=== PATIENT | female | born 1965 | race Caucasian/White ===

== ENCOUNTER 2019-10-26 12:30 | Outpatient (RCR) | payer OTHER, MEDICARE, SELFPAY ==
--- NOTE | 2019-09-12 15:01 | PTOPEVAL ---
PHYSICAL THERAPY EVALUATION AND PLAN OF CARE Thank you for referring Yara Castillo to [facility]. I recommend Yara work with PT at least 2x/week for 4 weeks with re-assess to determine further needs. Please review, sign, date and return this plan of care PAMELA. I agree with and certify that the following plan of care is medically necessary. Referring Physician Date Attending Provider: Chris Coats MD Assessment Status Evaluation Outpatient Past Medical History Cardiovascular History Hx Hypertension Yes Hx Myocardial Infarction Yes: stent 04/11/13 Musculoskeletal History Hx Amputation Yes: right transfemoral amputation Hx Other Musculoskeletal Disorders Yes: left LE neuropathy Endocrine History Hx Diabetes Yes Evaluation Information Problem Diagnosis gait training for right transfemoral amputation Onset 03/2019 Subjective Information Yara is here today for Query Text:As Reported By Patient/ gait training following right Family transfemoral amputation. reports no pain. She is excited to start trying to walk Prior Level of Function Activity Level (Last 3 Months) Hand Dominance Right Home Setting Home Type Single Level Environmental Barriers Ramp,Stairs, Threshold Living Situation With Minor Child,With Spouse Support Available Local Family Support Mobility Assistive Devices (Used Last 3 Wheelchair, Manual Months) Pain Assessment Timing of Pain Assessment Timing of Pain Assessment Assessment Self Report Self Report Pain Level 0 Pain Score Pain Score 0: Self Report Cervical and Lumbar Muscle Testing Lumbar Strength Upper Abdominal Strength 3+Fair+ Lower Abdominal Strength 3-Fair- Abdominal Obliques 3+Fair+ Lower Extremity Muscle Strength Testing Hip Strength Left Hip Flexion Strength 5 Normal Hip Extension Strength 4- Good - Hip Abduction Strength 4- Good - Right Hip Flexion Strength 4+ Good + Hip Extension Strength 4 Good Hip Abduction Strength 4 Good Hip Adduction Strength 4 Good Knee Strength Left Knee Flexion Strength 4+ Good + Knee Extension Strength 4+ Good + Ankle Strength Left Ankle Dorsiflexion Strength 3+ Fair + Ankle Plantarflexion Strength 3+ Fair + Ankle Eversion Strength 3+ Fair + Ankle Inversion Strength 3+ Fair + Upper Extremity Muscle Strength Testing Scapular/Shoulder Bilateral Shoulder Flexion Strength 4 Good Shoulder Abduction Strength 4 Good
--- NOTE | 2019-10-03 08:53 | PCPTNOTE ---
Patient called & cancelled scheduled appointment this date, no reason given.
--- NOTE | 2019-10-10 10:44 | PCPTNOTE ---
Patient called & cancelled scheduled appointment this date due to continuing to have fevers on and off.
--- NOTE | 2019-10-11 15:54 | PCPTNOTE ---
Patient called & cancelled scheduled appointment on 10/13/2019 this date due to being admitted to inpatient.
--- NOTE | 2019-10-26 13:16 | PTOPEVAL ---
PHYSICAL THERAPY DISCHARGE REPORT Thank you for referring Yara Castillo to [facility]. Per patient's request, we will discharge from PT at this time with an intention to start again when she is able to bear weight through left leg. Please review, sign, date and return this plan of care PAMELA. I agree with and certify that the following plan of care is medically necessary. Referring Physician Date Attending Provider: Chris Coats MD Discharge Diagnosis gait training for right transfemoral amputation Onset 03/2019 Subjective Information Tracy is here after Query Text:As Reported By Patient/ participating in 2 weeks of Family therapy and then taking a month off due to illness an hospitalization. She was hospitalized for a new and severe wound on left heel. She is currently non-weight bearing through left foot. She would like to be able to come to therapy when she can work on walking and using her prosthetic becaue she feels she is capable of doing her other home exercises on her own. Pain Assessment Timing of Pain Assessment Timing of Pain Assessment Assessment Self Report Self Report Pain Level 0 Pain Score Pain Score 0: Self Report Lower Extremity Muscle Strength Testing Hip Strength Left Hip Flexion Strength 5 Normal Hip Extension Strength 4+ Good + Hip Abduction Strength 4+ Good + Right Hip Flexion Strength 5 Normal Hip Extension Strength 4+ Good + Hip Abduction Strength 5 Normal Hip Adduction Strength 5 Normal Knee Strength Left Knee Flexion Strength 5 Normal Knee Extension Strength 5 Normal Ankle Strength Left Reason Not Measured Surgery Precautions Transfer Assessment Wheelchair Transfer Assessment Wheelchair Transfer Assistive Devices None Ambulation Assistive Devices None Wheelchair Type Manual Wheelchair Transfer Destination Mat Wheelchair Brakes Management Independent Wheelchair Armrests Management Independent Wheelchair Footrests Management Independent Sit to Stand Wheelchair Transfer Ability Independent Stand to Sit Wheelchair Transfer Ability Independent Ability to Safely Transfer To/From a Independent Wheelchair Wheelchair Transfer Technique Lateral Scoot Cues Needed for Wheelchair Transfer None Bed Mobility Assessment Bed Mobility Bed Mobility Assistive Dev
== END 2019-10-27 08:22 | disposition home or self-care (01) ==
LOC: ANHPT 12:30
PROVIDERS: Visit Provider Specialist
DX: Z47.81 Encounter for orthopedic aftercare following surgical amputation (principal); Z89.611 Acquired absence of right leg above knee
CPT/HCPCS: 97110; 97116; 97162; 97761

== ENCOUNTER 2020-04-11 10:46 | Outpatient (CLI) | payer OTHER, MEDICARE, SELFPAY ==
--- NOTE | ~2020-04-11 | XR_ITS ---
EXAMINATION: XR shoulder LT min 2V DATE: 04/11/2020 11:17 INDICATION: Left shoulder pain. TECHNIQUE: 4 views of left shoulder were obtained. COMPARISON: None. FINDINGS: Bone alignment is normal. No fracture. Subacromial spurring is noted. There is mild glenohu meral joint osteoarthritis and severe acromioclavicular joint osteoarthritis. IMPRESSION: 1. Polyarticular osteoarthritis. Reviewed, dictated and finalized at location B. ICATING MACHINE OPERATOR
== END 2020-04-11 10:47 | disposition home or self-care (01) ==
LOC: ANHIMG 10:52
PROVIDERS: PCP Family Medicine; Visit Provider Nurse Practitioner Family
DX: M19.012 Primary osteoarthritis, left shoulder (principal)
CPT/HCPCS: 73030

== ENCOUNTER 2020-07-11 09:07 | Outpatient (CLI) | payer BC, MEDICARE, SELFPAY ==
[2020-07-11 09:52] LABS: Basophils Absolute Auto 0.1 K/mm3 (0.0-0.1); Basophils Percent Auto 0.4 % (0.2-1.2); Eosinophils Absolute Auto 0.2 K/mm3 (0-0.3); Eosinophils Percent Auto 1.8 % (0-4.4); Hematocrit 39.5 % (37.0-47.0); Hemoglobin 12.5 g/dL (12.0-15.0); Immature Granulocyte Absolute 0.06 K/mm3 (0.00-0.031); Immature Granulocyte Percent A 0.5 % (0-0.5); Lymphocytes Absolute Auto 2.68 K/mm3 (0.9-3.2); Lymphocytes Percent Auto 21.1 % (18.3-44.2); Mean Corpuscular HGB Conc 31.6 g/dl (32-36); Mean Corpuscular Hemoglobin 27.8 pg (26-34); Mean Corpuscular Volume 87.8 fl (80-100); Mean Platelet Volume 10.4 fl (7.4-10.4); Monocytes Absolute Auto 0.6 K/mm3 (0.1-0.6); Monocytes Percent Auto 4.5 % (2.6-8.5); Neutrophils Absolute Auto 9.1 K/mm3 (1.3-6.7); Neutrophils Percent Auto 71.7 % (45.5-73.1); Platelet Count Result 276 k/mm3 (150-375); Red Cell Distribution Width 15.6 % (11.5-14.5); White Blood Count 12.7 K/mm3 (4.5-10.0)
== END 2020-07-11 09:08 | disposition home or self-care (01) ==
PROVIDERS: PCP Family Medicine; Visit Provider Nurse Practitioner Family
DX: R44.3 Hallucinations, unspecified (principal); E11.65 Type 2 diabetes mellitus with hyperglycemia; Z79.4 Long term (current) use of insulin
CPT/HCPCS: 36415; 80053; 85025

== ENCOUNTER 2020-07-22 13:40 | Observation (INO) | payer MEDICARE, BC, SELFPAY ==
[2020-07-22] VITALS (11 sets, daily range): BP systolic 88–165; BP diastolic 60–93; PULSE 118–135; RESP 13–26; TEMP 36.5–36.7; O2SAT 98–100; BMI 40.4
--- NOTE | ~2020-07-22 | CT_ITS ---
EXAMINATION: CT abdomen pelvis w con DATE: 07/22/2020 16:20 INDICATION: Epigastric abdominal pain. Nausea and vomiting. TECHNIQUE: Computed tomography (CT) of the abdomen and pelvis was performed with 100 mL Omnipaque 350 intravenous contrast. Automated exposure control and iterative reconstruction technique were employe d. The dose-length product was 1556.86 mGy-cm. COMPARISON: None. FINDINGS: The visualized portions of the lung bases demonstrate minimal atelectasis. No pleural effus ion. The heart size is normal. There are coronary artery calcifications. No pericardial effusion. The liver is normal. The gallbladder is distended. The spleen is normal. There are calcifications in the pancreas, consistent with chronic pancreatitis. The adrenal glands and kidneys are normal. There are no dilated loops of bowel. The appendix is normal. There are no pathologically enlarged lymph nodes. There is no free intraperitoneal fluid. There is mild thoracolumbar spondylosis. IMPRESSION: 1. Distended gallbladder, which may be secondary to fasting or acute cholecystitis. Correlate with ph ysical exam. Reviewed, dictated and finalized at location A. CULTURAL EQUIPMENT TEST ENGINEER IMPRESSION: 1. Distended gallbladder, which may be secondary to fasting or acute cholecysti tis. Correlate with physical exam.
--- NOTE | ~2020-07-22 | US_ITS ---
EXAMINATION: US right upper quadrant DATE: 07/22/2020 17:29 INDICATION: Right upper quadrant abdominal pain. TECHNIQUE: Multiple grayscale and Doppler ultrasound images of the abdomen were obtained. COMPARISON: CT abdomen and pelvis 07/22/2020 FINDINGS: The visualized portions of the head and body of the pancreas are normal. There is diffuse h epatic steatosis. There is normal flow in main portal vein. The gallbladder is distended. No gallston es or gallbladder wall thickening. There was no sonographic Song sign. The common duct is normal an d measures 4 mm. IMPRESSION: 1. Distended gallbladder, likely secondary to fasting. 2. Diffuse hepatic steatosis. Reviewed, dictated and finalized at location A. CTOR MUSEUM OR ZOO
--- NOTE | 2020-07-22 13:56 | ECG_ITS ---
Measurements Intervals [place] Rate: 133 P: 13 AL: 136 QRS: 19 QRSD: 91 T: 56 QT: 316 QTc: 471 Interpretive Statements SINUS TACHYCARDIA BORDERLINE R WAVE PROGRESSION, ANTERIOR LEADS BORDERLINE ST ABNORMALITY- INF/LAT LEADS BASELINE ARTIFACT- I, II, III, AVR, AVL, AVF ABNORMAL ECG Electronically Signed On 07-22-2020 14:53:40 PACKING LINE WORKER by Arcadio Dunaway D.O.
[2020-07-22] MEDS: SODIUM CHLORIDE 0.9% IV 1,000 ML 999 ML IV CONT ×2 (14:15→15:38)
--- NOTE | 2020-07-22 14:18 | ED.NAVMDI ---
HPI - Nausea/Vomiting/Diarrhea General Chief complaint: Nausea/Vomiting/Diarrhea Stated complaint: upper gi Time Seen by Provider: 07/22/20 13:48 History of Present Illness HPI Narrative: Patient is a 55-year-old female with history of diabetes who presents to the ER with nausea and vomiting. Reports she woke up this morning and has had persistent vomiting since awakening. Had similar symptoms about a week ago when she was seen in a separate emergency room and was diagnosed with gastroenteritis. She denies history of gastroparesis. Reports her blood sugars have been running in the 200s. Denies fever/chills/sweats. She reports abdominal discomfort in upper abdomen that is more related to feeling like she needs to vomit as opposed to sharp stabbing pain. She has no chest discomfort difficulty breathing. No known sick contacts. She has no diarrhea however when she vomits she does defecate. Related Data Home Medications Medication Instructions Recorded Confirmed aripiprazole 5 mg tablet 5 mg PO DAILY 06/27/19 07/11/20 aspirin 81 mg tablet,delayed 81 mg PO DAILY 06/27/19 07/11/20 release bupropion HCl 75 mg tablet 75 mg PO BID tablet 06/27/19 07/11/20 docusate sodium 100 mg capsule 100 mg PO BID 06/27/19 07/11/20 metoprolol succinate 50 mg 50 mg PO BID 06/27/19 07/11/20 tablet,extended release 24 hr ropinirole 0.25 mg tablet 0.25 mg PO DAILY tablet 06/27/19 07/11/20 venlafaxine 75 mg capsule,extended 225 mg PO QPM cap 06/27/19 07/11/20 release 24 hr atorvastatin 40 mg tablet 40 mg PO QPM tablet 10/04/19 07/11/20 blood-glucose meter,continuous #1 each 10/04/19 07/11/20 furosemide 20 mg tablet 20 mg PO QAM 01/18/20 07/11/20 lisinopril 2.5 mg tablet 2.5 mg PO DAILY 04/18/20 07/11/20 ondansetron HCl 8 mg tablet 8 mg PO Q8H tablet 07/11/20 07/11/20 Allergies Allergy/AdvReac Type Severity Reaction Status Date / Time No Known Allergies Allergy Verified 07/22/20 13:58 Review of Systems Review of Systems: All systems reviewed & are unremarkable except as noted in HPI and below Constitutional: Constitutional: Denies chills, Denies fever(s) and Reports weakness ENT: Denies nasal congestion and Denies sore throat Cardiovascular: Cardiovascular: Denies chest pain, Denies rapid heart rate and Denies radiating jaw, neck or arm pain Respiratory: Respiratory: Denies cough, Denies dyspnea and Denies wheezing Gastrointestinal: Gastrointestinal: Reports abdominal pain, Denies diarrhea, Reports nausea and Reports vomiting PMFSH Past Medical History Medical History Essential hypertension Foot ulcer History of right above knee amputation Neuropathy Other and unspecified hyperlipidemia Peripheral artery disease Phantom limb (syndrome) Proliferative diabetic retinopathy Recurrent urinary tract infection Tobacco abuse Type 2 diabetes mellitus with hyperglycemia, with long-term current use of insulin Surgical History Surgical History History of cardiac cath stent - 2012 History of section History of right below knee amputation Family History Family History Father Family history of malignant neoplasm of esophagus Mother Breast cancer Non-Hodgkin lymphoma Sibling No problems noted. Other Family history of lymphoma Family history of malignant neoplasm of breast Hypertension Malignant neoplasm of prostate Social History Social History Smoking packs per day: 1 Smoking cigarettes per day: 20.0 Smoking status: Former smoker Tobacco type: cigarettes Alcohol intake: never Substance use: current Substance use type: marijuana Gender identity (if verbalized by the patient): Female Exam Narrative: Exam Narrative: GENERAL: Chronically ill-appearing, mor
[2020-07-22 14:19] LABS: Alveolar/Arterial O2 Gradient 27.7 mmHg; Carboxyhemoglobin 0.7 % THb (0-2.0); Fractional Inspired Oxygen 21 %; HCO3 ABG 18.4 mEq/l (22.0-26.0); Methemoglobin ABG 0.2 %THb (0-1.5); Oxygen Content ABG 20.1 %vol (16.0-22.0); Oxygen Saturation ABG 98.3 % (95.0-100.0); PO2 ABG 97.7 mmHg (80.0-100.0); PO2 FiO2 Ratio Arterial Blood 4.65 %; Reduced Hemoglobin 2.1 %THb (0-5.0); Total Hemoglobin 14.7 g/dL (12.0-18.0)
[2020-07-22 14:20] LABS: Device ROOM AIR; Modified Allen's Test Pass; PCO2 ABG 20.3 mmHg (35.0-45.0); Site Drawn RIGHT RADIAL; pH ABG 7.576 (7.350-7.450)
[2020-07-22] MEDS: PROMETHAZINE HCL 25 MG/ML AMPUL 12.5 MG IV PUSH (14:28)
[2020-07-22 15:17] LABS: Glucose Point of Care 74 (65-105)
[2020-07-22 15:25] LABS: Basophils Absolute Auto 0.1 K/mm3 (0.0-0.1); Basophils Percent Auto 0.7 % (0.2-1.2); Eosinophils Absolute Auto 0.1 K/mm3 (0-0.3); Eosinophils Percent Auto 0.5 % (0-4.4); Hemoglobin 14.8 g/dL (12.0-15.0); Immature Granulocyte Percent A 1.1 % (0-0.5); Lymphocytes Absolute Auto 3.73 K/mm3 (0.9-3.2); Lymphocytes Percent Auto 21.1 % (18.3-44.2); Mean Corpuscular HGB Conc 32.2 g/dl (32-36); Mean Corpuscular Hemoglobin 27.5 pg (26-34); Mean Corpuscular Volume 85.5 fl (80-100); Mean Platelet Volume 10.3 fl (7.4-10.4); Monocytes Absolute Auto 0.7 K/mm3 (0.1-0.6); Monocytes Percent Auto 3.9 % (2.6-8.5); Neutrophils Absolute Auto 12.8 K/mm3 (1.3-6.7); Neutrophils Percent Auto 72.7 % (45.5-73.1); Platelet Count Result 519 k/mm3 (150-375); Red Blood Count 5.38 M/mm3 (4.2-5.4); Red Cell Distribution Width 15.2 % (11.5-14.5); White Blood Count 17.7 K/mm3 (4.5-10.0)
[2020-07-22 15:29] LABS: Add Urine Microscopic? YES; Appearance Urine Clear (Clear); Bilirubin Urine Negative (Negative); Blood Urine Negative (Negative); Color Urine Yellow (Yellow); Glucose Urine UA 3+ mg/dL (Negative); Ketones Urine Negative (Negative); Leukocyte Esterase Ur Negative LEU/UL (Negative); Mucus Urine Rare /lpf; Nitrate Urine Negative (Negative); Protein Urine 2+ mg/dL (Negative); RBC Urine 0-2 /hpf (0-2); Specific Grav Ur 1.027 (1.001-1.035); Squamous Epithelial Cell Urine Few /hpf (Few); Urobilinogen Urine Negative mg/dL (<2.0)
[2020-07-22 15:37] LABS: Alanine Aminotransferase 24 U/L (4-35); Albumin Level 4.5 g/dL (3.5-5.1); Alkaline Phosphatase 156 U/L (38-126); Anion Gap 16 mmol/L (8-16); Aspartate Amino Transferase 22 U/L (14-36); Bilirubin,Total 0.5 mg/dL (0.2-1.3); Blood Urea Nitrogen 13 mg/dL (7-17); Calcium 10.5 mg/dL (8.4-10.2); Carbon Dioxide 27 mmol/L (22-30); Chloride 101 mmol/L (98-107); Estimated CRCL calculation 61 ml/min; Estimated Glomerular Filt Rate 43; Glucose 72 mg/dL (65-105); Magnesium 1.3 mg/dL (1.6-2.3); Sodium 144 mmol/L (137-145)
[2020-07-22 15:42] LABS: Beta-Hydroxybutyrate/Acetoacetate 0.41 mmol/L (0.02-0.27)
[2020-07-22 15:46] LABS: Lactic Acid Reflex 6.2 mmol/L (0.7-2.1)
[2020-07-22 16:51] LABS: Phosphorus < 1.0 mg/dL (2.5-4.5)
[2020-07-22 18:21] LABS: Reflex Lactic Acid Yes or No Add Lactic
[2020-07-22 19:35] LABS: Hematocrit 42.8 % (37.0-47.0); Hemoglobin 13.9 g/dL (12.0-15.0)
[2020-07-22 19:58] LABS: Lactic Acid Reflex 3.4 mmol/L (0.7-2.1)
[2020-07-22] MEDS: PANTOPRAZOLE SODIUM IV 40 MG VIAL IV PUSH (21:42)
[2020-07-22] MEDS: MAGNESIUM SULF 4 GM/WATER100ML 4 GM/100 ML BAG IVPB (22:33)
[2020-07-22] MEDS: SODIUM CHLORIDE 0.9% IV 1,000 ML 125 ML IV CONT (22:38)
[2020-07-22] MEDS: POTASSIUM PHOS/SODIUM PHOS 250 MG TABLET PO (22:39)
--- NOTE | 2020-07-22 23:16 | PC.NURSE ---
This patient, Yara Castillo, was admitted to 2 Medical Room 261-01. Patient/family oriented to hospital policies and general routines including ID bracelet, bed and alarms, visiting hours, pain management, procedures, bathroom and other care routines, personal items, smoking policy, room service/diet, and visiting hours. Information on how to activate the Rapid Response Team has been discussed. Patient/Family are encouraged to report perceived risks to care and to ask questions if they do not understand what they are told or what they should do.
[2020-07-23] VITALS (12 sets, daily range): BP systolic 110–148; BP diastolic 66–88; PULSE 100–130; RESP 16–18; TEMP 35.9–36.6; O2SAT 93–100; BMI 40.4
[2020-07-23 01:08] LABS: Glucose Point of Care 192 (65-105)
[2020-07-23] MEDS: INSULIN GLARGINE (*BKC) 100 UNITS/ML 25 UNITS SUB-Q (01:59)
[2020-07-23] MEDS: METOPROLOL TARTRATE 50 MG TAB PO ×3 (02:00→21:05)
[2020-07-23] MEDS: ATORVASTATIN 40 MG TABLET PO ×2 (02:01→17:27)
--- NOTE | 2020-07-23 05:18 | PM.IMHP ---
H&P: HPI History of Present Illness Date/Time: 07/23/20 04:18 Chief Complaint: Nausea, vomiting and diarrhea Narrative: Yara Castillo is a 55 year old female with a past medical history of diabetic retinopathy, diabetic neuropathy, right pzdhu-xuz-ebmi amputation with non adherence to CPAP therapy, and coronary artery disease who presented to the ER from [facility] with nausea vomiting and diarrhea. The patient reports that 5 days ago she had about 24 hours of severe nausea and vomiting. She was evaluated at the ER at an outside hospital. Zofran and fluids with improvement in her symptoms. She was diagnosed with gastroenteritis and discharged home with Zofran. Following her episode of nausea vomiting she had constant heartburn. She reports that she had almost constant heartburn. She reports that if she could get a couple of sips of fluid down the pain would ease up in she was able to drink fluids. She was not interested in eating anything solid. She reported the eating anything solid caused her pain upon swallowing and upper abdominal pain. Then she reported that yesterday she was on her way to see Dr. Wilde when she began having severe nausea vomiting and diarrhea. She was at the doctor's office when she was on the commode and was so weak that she could not get back up. She has not had any further diarrhea since she presented to the ER. In the ER she received 2 L of fluid and additional 3rd L was given when she arrived to the medical floor. She also received Phenergan, potassium supplementation and Zosyn. The patient reports that she was having some abdominal pain but the pain felt more like discomfort from vomiting. The pain was not sharper stabbing. She denies any hematemesis. Triage note reports the patient had coffee-ground emesis on arrival to the ER. She reports that her mouth feels dry currently in that she wants something to drink. She denies having a history of diabetic gastroparesis. She has never had an EGD. Her father did have a history of esophageal cancer. The patient is worried that she may have esophageal cancer given the burning nature of her pain. She does have a history of intermittent heartburn. She did not try any cnwu-csz-tpuixnt medications for symptoms. She did not try the Zofran that had been previously prescribed. She denied any fevers, chills or recent ill contacts. Her stool was brown without hematochezia or melena. She is not having any lower abdominal pain. She still reports some right upper quadrant abdominal pain to palpation. She had a right upper quadrant ultrasound performed in the ER which demonstrated dilated gallbladder most consistent with fasting. The patient reports that her average glucoses are in the 200s. Her most recent hemoglobin A1c in fall 2019 was 10. She reports that she has not taken her Trulicity or Toujeo for the last 3 days. She has been taking her short-acting insulin. She took 50 units of short-acting insulin before going to Dr. Meño Wilde is office for her appointment. She reports that on Wednesday she was actually headed to see her woodworking machinist when her symptoms started. She was seeing her woodworking machinist due to new onset of uterine bleeding. Her woodworking machinist sent her to the ER. She plans to follow-up with her woodworking machinist regarding her vaginal bleeding. She denies any dysuria or hematuria. Review of Systems Review of Systems: Narrative: 12 systems were reviewed with pertinent positives and negatives per HPI. Except as documented in the HPI, all other systems were reviewed and are negative. [facility] Past Medical History Medical History (Updated 07/23/20 @ 06:06 by Yris Rubin, ) Depression Essential hypertension Foot ulcer Left foot ulcer September 2019 now healed History of TIAs December 2019 Hyperlipidemia Left carotid artery stenosis Morbid obesity Neuropathy Non-STEMI (non-ST elevated myocardial infarction) March 2013 Obstructive sleep ap
[2020-07-23 05:41] LABS: Hematocrit 37.1 % (37.0-47.0); Hemoglobin 11.7 g/dL (12.0-15.0); Mean Corpuscular HGB Conc 31.5 g/dl (32-36); Mean Corpuscular Hemoglobin 27.3 pg (26-34); Mean Corpuscular Volume 86.5 fl (80-100); Mean Platelet Volume 10.3 fl (7.4-10.4); Platelet Count Result 374 k/mm3 (150-375); Red Blood Count 4.29 M/mm3 (4.2-5.4); Red Cell Distribution Width 15.4 % (11.5-14.5); White Blood Count 16.3 K/mm3 (4.5-10.0)
[2020-07-23 05:56] LABS: Anion Gap 8 mmol/L (8-16); Blood Urea Nitrogen 15 mg/dL (7-17); Calcium 8.5 mg/dL (8.4-10.2); Carbon Dioxide 30 mmol/L (22-30); Chloride 101 mmol/L (98-107); Estimated CRCL calculation 72 ml/min; Estimated Glomerular Filt Rate 52; Glucose 174 mg/dL (65-105); Magnesium 2.3 mg/dL (1.6-2.3); Phosphorus 2.8 mg/dL (2.5-4.5); Potassium 3.7 mmol/L (3.4-5.0); Sodium 139 mmol/L (137-145)
[2020-07-23] MEDS: SODIUM CHLORIDE 0.9% IV 1,000 ML 125 ML IV CONT (07:38)
[2020-07-23 08:19] LABS: Glucose Point of Care 173 (65-105)
[2020-07-23 08:37] LABS: Reflex Lactic Acid Yes or No Add Lactic
[2020-07-23 09:00] LABS: Lactic Acid 2.4 mmol/L (0.7-2.1)
[2020-07-23] MEDS: ASPIRIN 81 MG ENTERIC TABLET PO (09:19)
[2020-07-23] MEDS: CLOPIDOGREL BISULFATE 75 MG TABLET PO (09:19)
[2020-07-23] MEDS: buPROPion HCL 75 MG TABLET PO ×2 (09:19→17:27)
[2020-07-23] MEDS: ARIPiprazole 10 MG TABLET PO (09:19)
[2020-07-23] MEDS: lisinopriL 2.5 MG TABLET PO (09:19)
[2020-07-23] MEDS: rOPINIRole HCL 0.25 MG TABLET PO (09:19)
[2020-07-23] MEDS: PANTOPRAZOLE SODIUM IV 40 MG VIAL IV PUSH ×2 (09:20→17:27)
--- NOTE | 2020-07-23 11:53 | P.PNIM_ITS ---
Progress Note: A&P Assessment and Plan (1) Nausea & vomiting: Qualifiers: Vomiting Intractability: non-intractable Vomiting type: unspecified Qualified Code(s): R11.2 - Nausea with vomiting, unspecified Code(s): R11.2 - Nausea with vomiting, unspecified Status: Acute Assessment and Plan: Possibly secondary to gastritis or esophagitis given her reports of somewhat frequent heartburn and odynophagia/dysphagia. Additional consideration includes diabetic gastroparesis but she denies any recurrent nausea and vomiting symptoms prior to the last week. * GI consulted and input is greatly appreciated. * Continue NPO status until evaluation by GI * Continue empiric zosyn given marked leukocytosis and finding of distended gallbladder on RUQ US and CT abd/pelvis, mild RUQ pain and will ask general surgery for additional input. This may be secondary to fasting given N/V. WBC is elevated but may also be reactive and secondary to vomiting. * Follow CBC. Blood cultures were obtained. * Continue supportive care with IV fluids and zofran PRN nausea/vomiting * Will obtain stool cultures given diarrhea (2) SIRS (systemic inflammatory response syndrome): Code(s): R65.10 - Systemic inflammatory response syndrome (SIRS) of non-infectious origin without acute organ dysfunction Status: Acute Assessment and Plan: SIRS criteria met on admission with leukocytosis and tachycardia. There is no definitive source of infection at this time however she has nausea, vomiting, and diarrhea with finding of gallbladder distention so she is on empiric zosyn. Lactic acid elevated on admission and improving. Blood pressure is stable. * Continue empiric zosyn for now * Blood cultures obtained and pending. Await results. * Follow hemodynamics and strict intake and output (3) Odynophagia: Code(s): R13.10 - Dysphagia, unspecified Status: Acute Assessment and Plan: She reports onset after vomiting. GI is following. * Await GI recommendations, she will likely benefit from EGD * Continue pantoprazole (4) Type 2 diabetes mellitus with hyperglycemia, with long-term current use of insulin: Code(s): E11.65 - Type 2 diabetes mellitus with hyperglycemia; Z79.4 - ad terminal makeup operator (current) use of insulin Status: Acute Assessment and Plan: Hemoglobin A1c 10.3 on 03/2020. Chronically poorly controlled. She has significant insulin resistance. She received a partial dose of lantus last night at 25 units since she is NPO. * Continue sliding scale insulin, Q6HR glucose monitoring, and hypoglycemia protocol * Resume mealtime insulin when no longer NPO * Continue lantus at a reduced dose, adjust as indicated * Will consult [place]ffer[place] construction supervisor and repeat hemoglobin A1c (5) Hypokalemia: Code(s): E87.6 - Hypokalemia Status: Resolved Assessment and Plan: Resolved. Likely secondary to poor oral intake and GI losses. She received potassium chloride and repeat potassium is 3.7. * Continue to monitor on daily labs and supplement as necessary (6) Hypomagnesemia: Code(s): E83.42 - Hypomagnesemia Status: Resolved Assessment and Plan: Resolved. Likely secondary to poor oral intake and GI losses. She received magnesium sulfate and repeat magnesium is 2.3 today. * Continue to monitor on daily labs and supplement as necessary (7) Hypophosphatemia: Code(s): E83.39 - Other disorders of phosphorus metabolism Status: Resolved Assessmen
--- NOTE | 2020-07-23 11:53 | PM.IMPN ---
Progress Note: A&P Assessment and Plan (1) Nausea & vomiting: Qualifiers: Vomiting Intractability: non-intractable Vomiting type: unspecified Qualified Code(s): R11.2 - Nausea with vomiting, unspecified Code(s): R11.2 - Nausea with vomiting, unspecified Status: Acute Assessment and Plan: Possibly secondary to gastritis or esophagitis given her reports of somewhat frequent heartburn and odynophagia/dysphagia. Additional consideration includes diabetic gastroparesis but she denies any recurrent nausea and vomiting symptoms prior to the last week. GI consulted and input is greatly appreciated. Continue NPO status until evaluation by GI Continue empiric zosyn given marked leukocytosis and finding of distended gallbladder on RUQ US and CT abd/pelvis, mild RUQ pain and will ask general surgery for additional input. This may be secondary to fasting given N/V. WBC is elevated but may also be reactive and secondary to vomiting. Follow CBC. Blood cultures were obtained. Continue supportive care with IV fluids and zofran PRN nausea/vomiting Will obtain stool cultures given diarrhea (2) SIRS (systemic inflammatory response syndrome): Code(s): R65.10 - Systemic inflammatory response syndrome (SIRS) of non-infectious origin without acute organ dysfunction Status: Acute Assessment and Plan: SIRS criteria met on admission with leukocytosis and tachycardia. There is no definitive source of infection at this time however she has nausea, vomiting, and diarrhea with finding of gallbladder distention so she is on empiric zosyn. Lactic acid elevated on admission and improving. Blood pressure is stable. Continue empiric zosyn for now Blood cultures obtained and pending. Await results. Follow hemodynamics and strict intake and output (3) Odynophagia: Code(s): R13.10 - Dysphagia, unspecified Status: Acute Assessment and Plan: She reports onset after vomiting. GI is following. 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 Chronically poorly controlled. She has significant insulin resistance. She received a partial dose of lantus last night at 25 units since she is NPO. Continue sliding scale insulin, Q6HR glucose monitoring, and hypoglycemia protocol Resume mealtime insulin when no longer NPO Continue lantus at a reduced dose, adjust as indicated Will consult life skills educator and repeat hemoglobin A1c (5) Hypokalemia: Code(s): E87.6 - Hypokalemia Status: Resolved Assessment and Plan: Resolved. Likely secondary to poor oral intake and GI losses. She received potassium chloride and repeat potassium is 3.7. Continue to monitor on daily labs and supplement as necessary (6) Hypomagnesemia: Code(s): E83.42 - Hypomagnesemia Status: Resolved Assessment and Plan: Resolved. Likely secondary to poor oral intake and GI losses. She received magnesium sulfate and repeat magnesium is 2.3 today. Continue to monitor on daily labs and supplement as necessary (7) Hypophosphatemia: Code(s): E83.39 - Other disorders of phosphorus metabolism Status: Resolved Assessment and Plan: Resolved. Likely secondary to poor oral intake and GI losses. Phosphorous was <1.0 on arrival. She received supplementation and phosphorous has normalized to 2.8 on repeat labs. Continue to monitor on daily labs and supplement as necessary (8) Lactic acidosis: Code(s): E87.2 - Acidosis Status: Acute Assessment and Plan: Lactic acid was 6.2 on arrival. Likely secondary to d
[2020-07-23 12:11] LABS: Glucose Point of Care 279 (65-105)
[2020-07-23 12:14] LABS: Lactic Acid Reflex 3.6 mmol/L (0.7-2.1)
[2020-07-23] MEDS: INSULIN ASPART (*BKC) 100 UNITS/ML SUB-Q ×2 (12:17→18:34)
--- NOTE | 2020-07-23 12:21 | PCNSR ---
On 07/23/20, the student, Rochelle Celaya, provided care and completed [facility] documentation on this patient. I have reviewed the student's documentation and agree with the findings.
[2020-07-23] MEDS: SODIUM CHLORIDE 0.9% IV 1,000 ML 999 ML IV CONT (13:50)
--- NOTE | 2020-07-23 14:42 | PM.CNGS ---
Assessment and Plan Assessment and plan (1) Abnormal finding on imaging: Code(s): R93.89 - Abnormal findings on diagnostic imaging of other specified body structures Status: Acute Assessment and Plan: Gallbladder distention noted on CT and RUQ ultrasound. No cholelithiasis, gallbladder wall thickening, positive Song sign, or inflammatory changes to suggest acute cholecystitis. I discussed these findings with the patient. After gathering a history and examining the patient, she does not seem to clinically correlate with gallbladder disease. Her presentation is also atypical for gallbladder disease. Her main complaint is the nausea/vomiting and pain with swallowing. GI has been consulted and is planning an EGD tomorrow. We would recommend proceeding with the EGD to further evaluate for other gastrointestinal causes for her symptoms. Okay from our standpoint to allow the patient to have clear liquids tonight if she is able to tolerate this and it is okay with GI. We will continue to follow along with you in consultation. (2) Nausea & vomiting: Qualifiers: Vomiting Intractability: non-intractable Vomiting type: unspecified Qualified Code(s): R11.2 - Nausea with vomiting, unspecified Code(s): R11.2 - Nausea with vomiting, unspecified Status: Acute Assessment and Plan: See plan above. GI consulted and planning EGD tomorrow. Continue IV fluids and antiemetics. Could also consider gastroparesis as a cause, although her symptoms seem to be more of an acute problem. (3) Leukocytosis: Code(s): D72.829 - Elevated white blood cell count, unspecified Status: Acute Assessment and Plan: No clear etiology for the leukocytosis and lactic acidosis. Could be related to dehydration, nausea, vomiting, but cannot rule out infectious process. Currently on broad-spectrum IV antibiotics and has received adequate IV fluid resuscitation. The leukocytosis and lactic acidosis does not appear to be related to her gallbladder. There is no findings on her imaging that would suggest any other obvious intra-abdominal source. UA negative for UTI. Continue to trend labs and treat empirically per primary team. (4) Lactic acidosis: Code(s): E87.2 - Acidosis Status: Acute Assessment and Plan: See above. Continue to monitor serial lactic acid levels, trending down. (5) Odynophagia: Code(s): R13.10 - Dysphagia, unspecified Status: Acute Assessment and Plan: EGD tomorrow. GI consulted. (6) Type 2 diabetes mellitus with hyperglycemia, with long-term current use of insulin: Code(s): E11.65 - Type 2 diabetes mellitus with hyperglycemia; Z79.4 - [facility] (current) use of insulin Status: Acute (7) Coronary artery disease: Code(s): I25.10 - Atherosclerotic heart disease of [place] coronary artery without angina pectoris Status: Chronic Assessment and Plan: Cardiac stent placed in 2012. (8) Left carotid artery stenosis: Code(s): I65.22 - Occlusion and stenosis of left carotid artery Status: Acute Assessment and Plan: History TIA in the summer and found to have significant left carotid artery stenosis. Patient reports that she was too high risk for surgery due to the significant stenosis, and was started on Plavix at this time. Currently on dual anti-platelet therapy with ASA/Plavix. Last dose this morning. 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 Now on hold. (10) Morbid obesity: Code(s): E66.01 - Morbid (severe) obesity due to excess calories Status: Inactive (11) Peripheral artery disease: Code(s): I73.9 - Peripheral vascular disease, unspecified Status: Acute (12) Neuropathy: Code(s): G62.9 - Polyneuropathy, unsp
[2020-07-23] MEDS: BACITRACIN/POLYMYXIN B OINT 15 GM TUBE 1 APPLIC TOPICAL (15:18)
[2020-07-23] MEDS: SODIUM CHLORIDE 0.9% IV 1,000 ML 150 ML IV CONT ×2 (15:18→21:07)
--- NOTE | 2020-07-23 15:51 | WPDGICN ---
Assessment and Plan Assessment and plan (1) Nausea & vomiting: Qualifiers: Vomiting Intractability: non-intractable Vomiting type: unspecified Qualified Code(s): R11.2 - Nausea with vomiting, unspecified Code(s): R11.2 - Nausea with vomiting, unspecified Status: Acute Assessment and Plan: will proceed with egd, assess if esophagitis, ulcers, etc it does not seem to be GB (not much pain) but surgery on board, started empirically on antibiotics because she presented with tachycardia and elevated lactic acid (improved now) (2) Upper abdominal pain: Code(s): R10.10 - Upper abdominal pain, unspecified Status: Acute Assessment and Plan: assess with egd also wonder if could be gastroenteritis, may have component of gastroparesis (probably can check gastric emptying study as outpatient because history of DM) (3) SIRS (systemic inflammatory response syndrome): Code(s): R65.10 - Systemic inflammatory response syndrome (SIRS) of non-infectious origin without acute organ dysfunction Status: Acute Assessment and Plan: on admission, better (4) Type 2 diabetes mellitus with hyperglycemia, with long-term current use of insulin: Code(s): E11.65 - Type 2 diabetes mellitus with hyperglycemia; Z79.4 - alf (current) use of insulin Status: Acute Assessment and Plan: with complications (neuropathy, amputation, etc) medical management by primary team (5) Essential hypertension: Code(s): I10 - Essential (primary) hypertension Status: Acute (6) Peripheral artery disease: Code(s): I73.9 - Peripheral vascular disease, unspecified Status: Acute GI Consult Note Consult date/time: 07/23/20 15:51 Reason for consult: intractable N/v HPI: Yara Castillo is a 55 year old female history of insulin-dependent diabetes mellitus for several years including PAD with left leg amputation, coronary artery disease on plavix and aspirin, hypertension, obstructive sleep apnea. She says that about 1 week ago started with nausea and vomiting also had one episode of loose stool that day, went to see her doctor and referred to ER at [facility] treated with IV fluids with improvement of symptoms, told probably viral infection. Wednesday again with nausea and vomiting, denies fever or much of abdominal pain and decided to see PCP but sent to ER because still was symptomatic. CT scan of the abdomen and pelvis reviewed that was unremarkable other than findings of gallbladder distension, no cholelithiasis. Right upper quadrant ultrasound showed gallbladder distention, no cholelithiasis or gallbladder [place]. [place] [address], lactic acid 6.2, and creatinine 1.3. She was tachycardic, treated with fluids and was started empirically on IV Zosyn, lactic acid down to 2.4. She never had EGD and denies chronic nausea but she claims history of GERD but not taking ppi. She had cologuard about 3 years ago, never colonoscopy. Review of Systems Constitutional: Constitutional: Denies chills Eyes: Eyes: Reports no additional eye complaints ENT: Reports system reviewed and no additional complaints, except as documented Cardiovascular: Cardiovascular: Denies chest pain Respiratory: Respiratory: Denies dyspnea Gastrointestinal: Gastrointestinal: Reports nausea and Reports vomiting Genitourinary: Genitourinary: Denies hematuria Musculoskeletal: Musculoskeletal: Denies neck pain Integumentary/Breasts: Skin/Breast: Denies pruritus Neurologic: Denies headache(s) Psychiatric: Psychiatric: Denies behavioral changes [facility] Past Medical History Medical History (Updated 07/23/20 @ 16:02 by Gonzalez Rangel MD) Depression Essential hypertension Foot ulcer Left foot ulcer September 2019 now healed, s/p debridement History of TIAs December 2019 Hyperlipidemia Left carotid artery stenosis on antiplatelet therapy Morbid obesi
[2020-07-23 16:03] LABS: Lactic Acid Reflex 2.4 mmol/L (0.7-2.1)
[2020-07-23] MEDS: VENLAFAXINE HCL XR 75 MG CAP.ER.24H 225 MG PO (17:27)
[2020-07-23 17:30] LABS: Glucose Point of Care 192 (65-105)
[2020-07-23] MEDS: INSULIN GLARGINE (*BKC) 100 UNITS/ML 35 UNITS SUB-Q (21:05)
[2020-07-24] VITALS (17 sets, daily range): BP systolic 131–160; BP diastolic 81–92; PULSE 98–117; RESP 16–22; TEMP 36.2–36.7; O2SAT 98–100
[2020-07-24] MEDS: INSULIN ASPART (*BKC) 100 UNITS/ML SUB-Q ×3 (00:36→17:48)
[2020-07-24 00:59] LABS: Glucose Point of Care 276 (65-105)
[2020-07-24 00:59] LABS: Glucose Point of Care 327 (65-105)
[2020-07-24] MEDS: SODIUM CHLORIDE 0.9% IV 1,000 ML 125 ML IV CONT (06:16)
[2020-07-24 06:50] LABS: Glucose Point of Care 179 (65-105)
[2020-07-24 06:56] LABS: Basophils Absolute Auto 0.1 K/mm3 (0.0-0.1); Basophils Percent Auto 0.7 % (0.2-1.2); Eosinophils Absolute Auto 0.3 K/mm3 (0-0.3); Eosinophils Percent Auto 2.6 % (0-4.4); Hematocrit 36.7 % (37.0-47.0); Hemoglobin 11.4 g/dL (12.0-15.0); Immature Granulocyte Absolute 0.05 K/mm3 (0.00-0.031); Immature Granulocyte Percent A 0.5 % (0-0.5); Lymphocytes Absolute Auto 3.42 K/mm3 (0.9-3.2); Lymphocytes Percent Auto 31.8 % (18.3-44.2); Mean Corpuscular HGB Conc 31.1 g/dl (32-36); Mean Corpuscular Hemoglobin 27.7 pg (26-34); Mean Corpuscular Volume 89.3 fl (80-100); Mean Platelet Volume 10.6 fl (7.4-10.4); Monocytes Absolute Auto 0.6 K/mm3 (0.1-0.6); Monocytes Percent Auto 5.2 % (2.6-8.5); Neutrophils Absolute Auto 6.4 K/mm3 (1.3-6.7); Neutrophils Percent Auto 59.2 % (45.5-73.1); Platelet Count Result 331 k/mm3 (150-375); Red Blood Count 4.11 M/mm3 (4.2-5.4); Red Cell Distribution Width 15.4 % (11.5-14.5); White Blood Count 10.7 K/mm3 (4.5-10.0)
[2020-07-24 07:02] LABS: Alanine Aminotransferase 16 U/L (4-35); Albumin Level 3.6 g/dL (3.5-5.1); Alkaline Phosphatase 108 U/L (38-126); Anion Gap 7 mmol/L (8-16); Aspartate Amino Transferase 23 U/L (14-36); Bilirubin,Total 0.5 mg/dL (0.2-1.3); Blood Urea Nitrogen 9 mg/dL (7-17); Calcium 8.1 mg/dL (8.4-10.2); Carbon Dioxide 30 mmol/L (22-30); Chloride 102 mmol/L (98-107); Estimated CRCL calculation 109 ml/min; Estimated Glomerular Filt Rate > 60; Glucose 183 mg/dL (65-105); Magnesium 1.8 mg/dL (1.6-2.3); Phosphorus 2.9 mg/dL (2.5-4.5); Potassium 3.9 mmol/L (3.4-5.0); Sodium 139 mmol/L (137-145)
[2020-07-24 07:12] LABS: Lactic Acid Reflex 1.7 mmol/L (0.7-2.1)
--- NOTE | 2020-07-24 08:07 | P.PNIM_ITS ---
Progress Note: A&P Assessment and Plan (1) Nausea & vomiting: Qualifiers: Vomiting Intractability: non-intractable Vomiting type: unspecified Qualified Code(s): R11.2 - Nausea with vomiting, unspecified Code(s): R11.2 - Nausea with vomiting, unspecified Status: Acute Assessment and Plan: Possibly secondary to gastritis or esophagitis given her reports of somewhat frequent heartburn and odynophagia/dysphagia. Additional consideration includes diabetic gastroparesis but she denies any recurrent nausea and vomiting symptoms prior to the last week. * GI consulted and input is greatly appreciated * Plan for EGD today * She may consider gastric emptying study as outpatient per GI * Will discuss antibiotics with GI as symptoms are not felt secondary to gallbladder disease and may consider discontinuing antibiotics if fine from GI standpoint. Appreciate general surgery input. * Follow CBC. Blood cultures were obtained and demonstrate NGTD. * Continue supportive care with IV fluids and zofran PRN nausea/vomiting * Stool cultures were ordered but she is not having any further diarrhea (2) SIRS (systemic inflammatory response syndrome): Code(s): R65.10 - Systemic inflammatory response syndrome (SIRS) of non-infectious origin without acute organ dysfunction Status: Acute Assessment and Plan: SIRS criteria met on admission with leukocytosis and tachycardia. There is no definitive source of infection at this time. She is on empiric zosyn but cholecystitis is not suspected. Lactic acidosis has resolved. Blood pressure is stable. * Continue empiric zosyn for now but will discuss with GI and may discontinue as WBC has improved significantly with no clear source of infection * Blood cultures obtained and demonstrate NGTD * Follow hemodynamics and strict intake and output (3) Odynophagia: Code(s): R13.10 - Dysphagia, unspecified Status: Acute Assessment and Plan: She reports onset after vomiting. GI is following. * Plan for EGD today for further assessment * Continue pantoprazole (4) Type 2 diabetes mellitus with hyperglycemia, with long-term current use of insulin: Code(s): E11.65 - Type 2 diabetes mellitus with hyperglycemia; Z79.4 - [facility] (current) use of insulin Status: Acute Assessment and Plan: Hemoglobin A1c 10.3 on 03/2020. Chronically poorly controlled. She has significant insulin resistance. She has had a few readings above target and insulin is currently reduced since she was NPO yesterday. Most recent blood sugar was 179. * Continue sliding scale insulin, Q6HR glucose monitoring, and hypoglycemia protocol * Resume mealtime insulin when no longer NPO * Continue lantus at a reduced dose of 35 units and will uptitrate for tonight if diet is advanced * Will consult nurse educator and repeat hemoglobin A1c (5) Hypokalemia: Code(s): E87.6 - Hypokalemia Status: Resolved Assessment and Plan: Resolved. Likely secondary to poor oral intake and GI losses. She received potassium chloride and repeat potassium is 3.9. * Continue to monitor on daily labs and supplement as necessary (6) Hypomagnesemia: Code(s): E83.42 - Hypomagnesemia Status: Resolved Assessment and Plan: Resolved. Likely secondary to poor oral intake and GI losses. She received magnesium sulfate and repeat magnesium is 1.8 today. * Continue to monitor on daily labs and supplement as necessary (7) Hypophosphatemia:
--- NOTE | 2020-07-24 08:07 | PM.IMPN ---
Progress Note: A&P Assessment and Plan (1) Nausea & vomiting: Qualifiers: Vomiting Intractability: non-intractable Vomiting type: unspecified Qualified Code(s): R11.2 - Nausea with vomiting, unspecified Code(s): R11.2 - Nausea with vomiting, unspecified Status: Acute Assessment and Plan: Possibly secondary to gastritis or esophagitis given her reports of somewhat frequent heartburn and odynophagia/dysphagia. Additional consideration includes diabetic gastroparesis but she denies any recurrent nausea and vomiting symptoms prior to the last week. GI consulted and input is greatly appreciated Plan for EGD today She may consider gastric emptying study as outpatient per GI Will discuss antibiotics with GI as symptoms are not felt secondary to gallbladder disease and may consider discontinuing antibiotics if fine from GI standpoint. Appreciate general surgery input. Follow CBC. Blood cultures were obtained and demonstrate NGTD. Continue supportive care with IV fluids and zofran PRN nausea/vomiting Stool cultures were ordered but she is not having any further diarrhea (2) SIRS (systemic inflammatory response syndrome): Code(s): R65.10 - Systemic inflammatory response syndrome (SIRS) of non-infectious origin without acute organ dysfunction Status: Acute Assessment and Plan: SIRS criteria met on admission with leukocytosis and tachycardia. There is no definitive source of infection at this time. She is on empiric zosyn but cholecystitis is not suspected. Lactic acidosis has resolved. Blood pressure is stable. Continue empiric zosyn for now but will discuss with GI and may discontinue as WBC has improved significantly with no clear source of infection Blood cultures obtained and demonstrate NGTD Follow hemodynamics and strict intake and output (3) Odynophagia: Code(s): R13.10 - Dysphagia, unspecified Status: Acute Assessment and Plan: She reports onset after vomiting. GI is following. 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 Chronically poorly controlled. She has significant insulin resistance. She has had a few readings above target and insulin is currently reduced since she was NPO yesterday. Most recent blood sugar was 179. Continue sliding scale insulin, Q6HR glucose monitoring, and hypoglycemia protocol Resume mealtime insulin when no longer NPO Continue lantus at a reduced dose of 35 units and will uptitrate for tonight if diet is advanced Will consult breastfeeding educator and repeat hemoglobin A1c (5) Hypokalemia: Code(s): E87.6 - Hypokalemia Status: Resolved Assessment and Plan: Resolved. Likely secondary to poor oral intake and GI losses. She received potassium chloride and repeat potassium is 3.9. Continue to monitor on daily labs and supplement as necessary (6) Hypomagnesemia: Code(s): E83.42 - Hypomagnesemia Status: Resolved Assessment and Plan: Resolved. Likely secondary to poor oral intake and GI losses. She received magnesium sulfate and repeat magnesium is 1.8 today. Continue to monitor on daily labs and supplement as necessary (7) Hypophosphatemia: Code(s): E83.39 - Other disorders of phosphorus metabolism Status: Resolved Assessment and Plan: Resolved. Likely secondary to poor oral intake and GI losses. Phosphorous was <1.0 on arrival. She received supplementation and phosphorous has normalized to 2.9 on repeat labs. Continue to monitor on daily labs and supplement as necessary (8) Lactic acidosis: Code(s): E87.2 - [place]
--- NOTE | 2020-07-24 09:15 | PC.NURSE ---
pt to GI lab via wheelchair, brief report given to receiving RN
--- NOTE | 2020-07-24 09:32 | WPDANESEPPF ---
Anes - Initial Pre Proc Eval Procedure: Operation Date: 07/24/20 10:45 Proposed Procedures p Esophagogastroduodenoscopy - Gonzalez Rangel MD Date/Time: 07/24/20 09:32 Surgeon: Claudia Morales PA-C Pre Op Diagnosis: nausea and vomiting Patient Data Age: 55 Gender: F Height: 5 ft 8 in Weight: 120.5 kg Last Vital Signs Temp 97.7 F 07/24/20 06:00 Pulse 109 H 07/24/20 06:00 Resp 16 07/24/20 06:00 BP 141/85 H 07/24/20 06:00 Pulse Ox 99 07/24/20 06:00 Allergies Allergy/AdvReac Type Severity Reaction Status Date / Time No Known Allergies Allergy Verified 07/22/20 13:58 Home Medications Medication Instructions Recorded Confirmed Type aripiprazole 5 mg tablet 10 mg PO DAILY 06/27/19 07/22/20 History aspirin 81 mg tablet,delayed 81 mg PO DAILY 06/27/19 07/22/20 History release bupropion HCl 75 mg tablet 75 mg PO BID tablet 06/27/19 07/22/20 History docusate sodium 100 mg capsule 100 mg PO BID PRN 06/27/19 07/22/20 History ropinirole 0.25 mg tablet 0.25 mg PO DAILY tablet 06/27/19 07/22/20 History venlafaxine 75 mg capsule,extended 225 mg PO QPM cap 06/27/19 07/22/20 History release 24 hr atorvastatin 40 mg tablet 40 mg PO QPM tablet 10/04/19 07/22/20 History lisinopril 2.5 mg tablet 2.5 mg PO DAILY 04/18/20 07/22/20 History Trulicity 1.5 mg/0.5 mL 1.5 mg SUBCUT WEEKLY 90 Days #6 ml 04/24/20 07/22/20 Rx subcutaneous pen injector NS clopidogrel 75 mg tablet 75 mg PO DAILY #90 tablet 05/02/20 07/22/20 Rx Novolog U-100 Insulin aspart 100 50 unit SUBCUT TID 90 Days #140 ml 07/03/20 07/22/20 Rx unit/mL subcutaneous solution NS insulin glargine U-300 conc 300 110 unit SUBCUT QPM 90 Days 07/03/20 07/22/20 Rx unit/mL (3 mL) subcutaneous pen #33.003 ml metoprolol tartrate 50 mg PO Q12H 07/22/20 07/22/20 History Laboratory Tests 07/23/20 07/23/20 07/23/20 11:27 12:06 15:31 WBC RBC Hgb Hct MCV MCH MCHC RDW Plt Count MPV Immature Gran % (Auto) Neut % (Auto) Lymph % (Auto) [place] % (Auto) Eos % (Auto) Baso % (Auto) Lymph # (Auto) [place] # (Auto) Eos # (Auto) Baso # (Auto) Abs Immat Gran (auto) Absolute Neuts (auto) Absolute Nucleated RBC Nucleated RBC % Sodium Potassium Chloride Carbon Dioxide Anion Gap BUN Creatinine Estim Creat Clear Calc Estimated GFR Glucose POC Capillary Glucose 279 mg/dl H mg/dl (65-105) Lactic Acid 3.6 mmol/L H mmol/L 2.4 mmol/L H mmol/L (0.7-2.1) (0.7-2.1) Calcium Phosphorus Magnesium Total Bilirubin AST ALT Alkaline Phosphatase Total Protein Albumin 07/23/20 07/23/20 07/24/20 17:26 21:02 00:22 WBC RBC Hgb Hct MCV MCH MCHC RDW Plt Count MPV Immature Gran % (Auto) Neut % (Auto) Lymph % (Auto) [place] % (Auto) Eos % (Auto) Baso % (Auto) Lymph # (Auto) [place] # (Auto) Eos # (Auto) Baso # (Auto) Abs Immat Gran (auto) Absolute Neuts (auto) Absolute Nucleated RBC Nucleated RBC % Sodium Potassium Chloride Carbon Dioxide Anion Gap BUN Creatinine Estim Creat Clear Calc Estimated GFR Glucose
[2020-07-24] MEDS: BENZOCAINE (*SP) 60 ML SPRAY CAN (HURRICAINE) 1 SPRAY MUCOUS MEM (10:06)
[2020-07-24] MEDS: LACTATED RINGERS 1,000 ML 150 ML IV CONT (10:06)
[2020-07-24 10:40] LABS: Glucose Point of Care 230 (65-105)
--- NOTE | 2020-07-24 11:20 | PC.NURSE ---
pt returned from GI lab wanting to eat, diet advanced per orders
[2020-07-24] MEDS: lisinopriL 2.5 MG TABLET PO (12:44)
[2020-07-24] MEDS: METOPROLOL TARTRATE 50 MG TAB PO ×2 (12:44→22:20)
[2020-07-24] MEDS: buPROPion HCL 75 MG TABLET PO ×2 (12:45→17:46)
[2020-07-24] MEDS: BACITRACIN/POLYMYXIN B OINT 15 GM TUBE 1 APPLIC TOPICAL (12:45)
[2020-07-24] MEDS: rOPINIRole HCL 0.25 MG TABLET PO (12:45)
[2020-07-24] MEDS: PANTOPRAZOLE SODIUM IV 40 MG VIAL IV PUSH ×2 (12:45→17:46)
[2020-07-24] MEDS: ARIPiprazole 10 MG TABLET PO (12:45)
[2020-07-24] MEDS: SUCRALFATE 1 GM TABLET PO ×3 (12:46→22:20)
--- NOTE | 2020-07-24 15:56 | PM.PNGS ---
Progress Note: A&P Assessment and Plan (1) Esophagitis, erosive: Onset Date: Unknown Code(s): K22.10 - Ulcer of esophagus without bleeding Status: Acute Assessment and Plan: this probably is recent onset and the cause of her nausea. Doubt any gallbladder problems in view of normal CT and ultrasound. We will sign off her case. ( see GI endoscopy notes and GI recommendations. Please call us if we can be of further assistance. (2) Upper abdominal pain: Onset Date: ~07/2020 Code(s): R10.10 - Upper abdominal pain, unspecified Status: Acute Assessment and Plan: Pain improved. Most likely caused by the esophagitis above see that plan. (3) Left carotid artery stenosis: Code(s): I65.22 - Occlusion and stenosis of left carotid artery Status: Acute (4) Antiplatelet or antithrombotic long-term use: Code(s): Z79.02 - exterminator helper termite (current) use of antithrombotics/antiplatelets Status: Acute (5) Coronary artery disease: Code(s): I25.10 - Atherosclerotic heart disease of [place] coronary artery without angina pectoris Status: Chronic (6) Dysphagia: Code(s): R13.10 - Dysphagia, unspecified Status: Acute (7) Type 2 diabetes mellitus with hyperglycemia, with long-term current use of insulin: Code(s): E11.65 - Type 2 diabetes mellitus with hyperglycemia; Z79.4 - care home (current) use of insulin Status: Acute (8) Essential hypertension: Code(s): I10 - Essential (primary) hypertension Status: Acute (9) History of right above knee amputation: Code(s): Z89.611 - Acquired absence of right leg above knee Status: Acute (10) Tobacco abuse: Code(s): Z72.0 - Tobacco use Status: Acute (11) Neuropathy: Code(s): G62.9 - Polyneuropathy, unspecified Status: Acute Additional Plan General surgery signing off. Please call if we can be of further assisitance. Time Spent With Patient Time with patient: less than 15 minutes Subjective Subjective Date/Time Seen: 07/24/20 15:45 patient is sitting up in bed when I walked in the room. She states she does not remember much about the endoscopy. I let her know that Dr. Montes is told me that she had fairly severe esophagitis. Biopsies were taken she also had mild pre-pyloric gastritis. H pylori MOISE test however was negative. See plan below. Patient denies much upper abdominal pain today. Starting to tolerate a liquid diet. Review of Systems Constitutional: Constitutional: Reports no additional constitutional complaints ENT: Reports other (Mucous Membranes moist.) Cardiovascular: Cardiovascular: Denies dyspnea Respiratory: Respiratory: Denies pain on inspiration and Denies dyspnea Gastrointestinal: Gastrointestinal: Reports abdominal pain ( Mild epigastric), Reports early satiety, Reports heartburn and Denies nausea Comments: nausea improved today Musculoskeletal: Musculoskeletal: Reports other (No calf swelling or edema) Integumentary/Breasts: Skin/Breast: Reports system reviewed and no additional complaints, except as docu Exam Const: General: cooperative, no acute distress, alert and awake Orientation/consciousness: patient oriented x3 HENMT: Mouth: Yes moist mucous membranes Neck: Neck: normal visual inspection Chest: Chest palpation & inspection: normal inspection of the chest Resp: Effort & Inspection: normal respiratory effort Auscultation: clear to auscultation bilaterally Cardio: Jugular venous distension: no JVD Rate: regular rate Rhythm: regular rhythm GI: Auscultation: normal bowel sounds Rectal Exam: deferred Neuro: General: patient oriented x3 and moves all extremities Speech: normal speech Extrem: General: normal exam except as noted Psych: Mental Status: mental status grossly normal Speech and movement: Normal speech and movement present Affect: normal affect Thought content: Yes Normal thought c
[2020-07-24 16:29] LABS: Glucose Point of Care 315 (65-105)
[2020-07-24] MEDS: ATORVASTATIN 40 MG TABLET PO (17:46)
[2020-07-24] MEDS: VENLAFAXINE HCL XR 75 MG CAP.ER.24H 225 MG PO (17:47)
[2020-07-24] MEDS: INSULIN ASPART (*BKC) 100 UNITS/ML 10 UNITS SUB-Q (17:48)
[2020-07-24 21:20] LABS: Glucose Point of Care 202 (65-105)
[2020-07-24] MEDS: INSULIN GLARGINE (*BKC) 100 UNITS/ML 50 UNITS SUB-Q (22:18)
[2020-07-25] VITALS: PULSE 111
[2020-07-25 04:00] VITALS: PULSE 108
[2020-07-25 06:00] VITALS: BP 143/90; PULSE 110; RESP 18; TEMP 36.4; O2SAT 99
[2020-07-25 06:23] LABS: Basophils Absolute Auto 0.1 K/mm3 (0.0-0.1); Basophils Percent Auto 0.5 % (0.2-1.2); Eosinophils Absolute Auto 0.2 K/mm3 (0-0.3); Eosinophils Percent Auto 2.1 % (0-4.4); Hematocrit 39.3 % (37.0-47.0); Hemoglobin 12.3 g/dL (12.0-15.0); Immature Granulocyte Absolute 0.05 K/mm3 (0.00-0.031); Immature Granulocyte Percent A 0.5 % (0-0.5); Lymphocytes Absolute Auto 2.56 K/mm3 (0.9-3.2); Lymphocytes Percent Auto 26.3 % (18.3-44.2); Mean Corpuscular HGB Conc 31.3 g/dl (32-36); Mean Corpuscular Hemoglobin 27.4 pg (26-34); Mean Corpuscular Volume 87.5 fl (80-100); Mean Platelet Volume 10.3 fl (7.4-10.4); Monocytes Absolute Auto 0.5 K/mm3 (0.1-0.6); Monocytes Percent Auto 4.8 % (2.6-8.5); Neutrophils Absolute Auto 6.4 K/mm3 (1.3-6.7); Neutrophils Percent Auto 65.8 % (45.5-73.1); Platelet Count Result 305 k/mm3 (150-375); Red Blood Count 4.49 M/mm3 (4.2-5.4); Red Cell Distribution Width 15.1 % (11.5-14.5); White Blood Count 9.8 K/mm3 (4.5-10.0)
[2020-07-25 06:46] LABS: Anion Gap 7 mmol/L (8-16); Blood Urea Nitrogen 8 mg/dL (7-17); Calcium 8.7 mg/dL (8.4-10.2); Carbon Dioxide 30 mmol/L (22-30); Chloride 100 mmol/L (98-107); Estimated CRCL calculation 97 ml/min; Estimated Glomerular Filt Rate > 60; Glucose 319 mg/dL (65-105); Magnesium 1.8 mg/dL (1.6-2.3); Phosphorus 3.3 mg/dL (2.5-4.5); Potassium 4.4 mmol/L (3.4-5.0); Sodium 137 mmol/L (137-145)
[2020-07-25] MEDS: SUCRALFATE 1 GM TABLET PO ×2 (06:47→11:15)
[2020-07-25 07:49] VITALS: PULSE 106
[2020-07-25] MEDS: CLOPIDOGREL BISULFATE 75 MG TABLET PO (07:49)
[2020-07-25] MEDS: lisinopriL 2.5 MG TABLET PO (07:49)
[2020-07-25] MEDS: ARIPiprazole 10 MG TABLET PO (07:49)
[2020-07-25] MEDS: BACITRACIN/POLYMYXIN B OINT 15 GM TUBE 1 APPLIC TOPICAL (07:49)
[2020-07-25] MEDS: METOPROLOL TARTRATE 50 MG TAB PO (07:49)
[2020-07-25] MEDS: buPROPion HCL 75 MG TABLET PO (07:49)
[2020-07-25] MEDS: PANTOPRAZOLE SODIUM IV 40 MG VIAL IV PUSH (07:50)
[2020-07-25] MEDS: rOPINIRole HCL 0.25 MG TABLET PO (07:50)
[2020-07-25] MEDS: INSULIN ASPART (*BKC) 100 UNITS/ML 15 UNITS SUB-Q ×2 (08:02→11:19)
[2020-07-25] MEDS: INSULIN ASPART (*BKC) 100 UNITS/ML SUB-Q ×2 (08:02→11:19)
[2020-07-25 08:08] LABS: Glucose Point of Care 344 (65-105)
[2020-07-25 08:20] VITALS: PULSE 108
[2020-07-25 11:20] LABS: Glucose Point of Care 305 (65-105)
[2020-07-25 12:00] VITALS: PULSE 108
--- NOTE | 2020-07-25 12:00 | WPDANESPN ---
Anes - Prog Note Post-Op Date/Time: 07/25/20 12:00 Cardiovascular status: normal Respiratory status: normal Airway patency: baseline Mental status: baseline Post-Op hydration status: normal Vital Signs: Last Vital Signs Temp 36.4 C L 07/25/20 06:00 Pulse 108 H 07/25/20 08:20 Resp 18 07/25/20 06:00 BP 143/90 H 07/25/20 06:00 Pulse Ox 99 07/25/20 06:00 Pain Score (VAS): 0/10. Patient resting in bed at time of assessment, appears comfortable. I/O: Intake & Output 07/24/20 07/25/20 07/25/20 23:59 07:59 15:59 Intake Total 1800 700 Output Total 2400 Balance 1800 -1700 Laboratory Tests 07/25/20 06:11 07/25/20 06:11 07/24/20 07/24/20 07/25/20 16:26 21:10 06:11 WBC 9.8 RBC 4.49 Hgb 12.3 Hct 39.3 MCV 87.5 MCH 27.4 MCHC 31.3 L RDW 15.1 H Plt Count 305 MPV 10.3 Immature Gran % (Auto) 0.5 Neut % (Auto) 65.8 Lymph % (Auto) 26.3 Brule % (Auto) 4.8 Eos % (Auto) 2.1 Baso % (Auto) 0.5 Lymph # (Auto) 2.56 Brule # (Auto) 0.5 Eos # (Auto) 0.2 Baso # (Auto) 0.1 Abs Immat Gran (auto) 0.05 H Absolute Neuts (auto) 6.4 Absolute Nucleated RBC 0.0 Nucleated RBC % 0.0 Sodium Potassium Chloride Carbon Dioxide Anion Gap BUN Creatinine Estim Creat Clear Calc Estimated GFR Glucose POC Capillary Glucose 315 H 202 H Calcium Phosphorus Magnesium 07/25/20 07/25/20 07/25/20 06:11 07:46 11:17 WBC RBC Hgb Hct MCV MCH MCHC RDW Plt Count MPV Immature Gran % (Auto) Neut % (Auto) Lymph % (Auto) Brule % (Auto) Eos % (Auto) Baso % (Auto) Lymph # (Auto) Brule # (Auto) Eos # (Auto) Baso # (Auto) Abs Immat Gran (auto) Absolute Neuts (auto) Absolute Nucleated RBC Nucleated RBC % Sodium 137 Potassium 4.4 Chloride 100 Carbon Dioxide 30 Anion Gap 7 L BUN 8 Creatinine 0.80 Estim Creat Clear Calc 97 Estimated GFR > 60 Glucose 319 H POC Capillary Glucose 344 H 305 H Calcium 8.7 Phosphorus 3.3 Magnesium 1.8 Post-procedural complaints: none Patient Feedback: Patient satisfied with anesthetic care.
--- NOTE | 2020-07-25 12:45 | PM.DS ---
DS: Admitting Diagnosis Admitting Diagnosis Admitting Diagnosis: Nausea and vomiting DS: Discharge Diagnosis Discharge Diagnosis (1) Esophagitis, erosive: Onset Date: Unknown Code(s): K22.10 - Ulcer of esophagus without bleeding Status: Acute Assessment and Plan: Discharge Summary (Date of service 07/25/20): Mrs. Castillo is a 55 y.o. female with PMH significant for IDDM complicated by diabetic retinopathy, neuropathy, and right AKA, EDEN and CPAP noncompliance, CAD, PAD, carotid stenosis, hypertension, and hyperlipidemia who presented to the emergency department 07/22/20 for the evaluation of nausea, vomiting, and diarrhea. She reported an episode of nausea and vomiting 5 days prior to presentation. She was seen in an outside ED and treated with including zofran and IV fluids with symptom improvement. Following that episode, she noticed constant heartburn and inability to keep oral intake down. Solid foods caused significant odynophagia. She went to her PCP's office for evaluation and developed severe nausea, vomiting, and diarrhea so she was sent to the emergency department. In addition to nausea, vomiting, and diarrhea, she also had odynophagia and epigastric abdominal pain. On arrival to the emergency department, BP was low at 88/63 and she was tachycardic. Initial labs demonstrated 17,700 with lymphocyte and monocyte predominance. Lactic acid was markedly elevated at 6.2. Potassium was low at 3.0 and Cr elevated at 1.3. Urinalysis demonstrated hyaline casts. CT abd/pelvis demonstrated distended gallbladder which could be secondary to fasting vs acute cholecystitis. Blood cultures were obtained and she was treated with empiric IV zosyn, IV protonix BID, aggressive IV fluid rehydration and admitted to the hospitalist service for further treatment. GI was consulted and she underwent EGD by Dr. Rangel which showed moderate to severe localized esophagitis in the distal esophagus. Biopsies were obtained and she will need to continue protonix BID and carafate with meals for 2 weeks. Her symptoms improved significantly and her diet was advanced as tolerated which she did well with. She had no further nausea or vomiting and pain was significantly better. General surgery was consulted given gallbladder distention on CT abd/pelvis and RUQ US. WBC normalized and she was afebrile without clinical evidence of acute cholecystitis so IV zosyn was discontinued and general surgery did not feel her symptoms were secondary to gallbladder disease. She was doing much better overall and no longer required inpatient care. She was discharged in hemodynamically stable condition on the afternoon of 07/25/20. Worrisome signs and symptoms which would warrant return to the emergency department were discussed and she verbalized understanding. (2) Gastritis: Code(s): K29.70 - Gastritis, unspecified, without bleeding Status: Acute Assessment and Plan: EGD demonstrated mild gastritis at the antrum. She will take PPI BID. Diet recommendations were discussed and she was advised to avoid NSAIDs. H pylori MOISE test was negative. (3) Nausea & vomiting: Qualifiers: Vomiting Intractability: non-intractable Vomiting type: unspecified Qualified Code(s): R11.2 - Nausea with vomiting, unspecified Code(s): R11.2 - Nausea with vomiting, unspecified Status: Acute Assessment and Plan: Resolved. Likely secondary to esophagitis and gastritis which was demonstrated on EGD. Nausea and vomiting resolved and pain improved with PPI therapy. She may consider gastric emptying study as outpatient per GI given diabetes and potential for gastroparesis. (4) SIRS (systemic inflammatory response syndrome): Code(s): R65.10 - Systemic inflammatory response syndrome (SIRS) of non-infectious origin without acute organ dysfunction Status: Acute Assessment and Plan: SIRS criteria met on admission with leukocytosis
--- NOTE | 2020-07-25 16:46 | WPDGIPROGNO ---
Progress Note: A&P Assessment and Plan (1) Esophagitis, erosive: Onset Date: Unknown Code(s): K22.10 - Ulcer of esophagus without bleeding Status: Acute Assessment and Plan: can explain symptoms, continue with PPI twice daily egd in 3 months to assess for healing avoid nsaid's (2) Upper abdominal pain: Onset Date: ~07/2020 Code(s): R10.10 - Upper abdominal pain, unspecified Status: Acute Assessment and Plan: improved (3) Nausea & vomiting: Qualifiers: Vomiting Intractability: non-intractable Vomiting type: unspecified Qualified Code(s): R11.2 - Nausea with vomiting, unspecified Code(s): R11.2 - Nausea with vomiting, unspecified Status: Acute Assessment and Plan: resolved, from severe esophagitis (4) Lactic acidosis: Code(s): E87.2 - Acidosis Status: Acute Assessment and Plan: resolved, from dehydration and intractable N/V on admission (5) Type 2 diabetes mellitus with hyperglycemia, with long-term current use of insulin: Code(s): E11.65 - Type 2 diabetes mellitus with hyperglycemia; Z79.4 - extermination inspector (current) use of insulin Status: Acute (6) Colon cancer screening: Code(s): Z12.11 - Encounter for screening for malignant neoplasm of colon Status: Acute Assessment and Plan: she would like to get colonoscopy in 3 months with EGD (for screening) Subjective Date/time seen: 07/25/20 10:00 Interval history: she is doing much better and plan to go home Review of Systems Constitutional: Constitutional: Denies headache(s) and Denies weakness Eyes: Eyes: Denies blurry vision ENT: Reports Normal hearing present, Denies headache(s) and Denies neck pain Cardiovascular: Cardiovascular: Denies chest pain and Denies dyspnea Respiratory: Respiratory: Denies dyspnea Gastrointestinal: Gastrointestinal: Reports no additional gastrointestinal complaints Genitourinary: Genitourinary: Denies dysuria Musculoskeletal: Musculoskeletal: Denies neck pain Integumentary/Breasts: Skin/Breast: Denies dry skin Neurologic: Reports Normal hearing present, Denies headache(s) and Denies weakness Psychiatric: Psychiatric: Denies anxiety Endocrine: Endocrine: Denies change in body appearance Hematologic/Lymphatic: Hematologic/Lymphatic: Denies easy bleeding Allergic/Immunologic: Allergic/Immunologic: Denies urticaria Exam Const: General: comfortable and no acute distress HENMT: General nose exam: Normal nares present Eyes: General: appearance normal, both eyes and all related structures Neck: Neck: no JVD Resp: Auscultation: clear to auscultation bilaterally Cardio: Rate: regular rate Rhythm: regular rhythm GI: Inspection: non-distended GI Palp: Yes Soft to palpation Skin: General skin exam: normal color Neuro: General: gait normal Speech: normal speech Extrem: General: normal to inspection Psych: Mental Status: mental status grossly normal Objective Data Vital Signs Vital Signs: Vital Signs - 24 hr 07/24/20 18:00 07/24/20 20:00 07/24/20 22:00 Temperature 97.9 F 97.9 F Pulse Rate 110 H 110 H 111 H Respiratory Rate 18 16 Blood Pressure 147/82 H 140/89 Pulse Oximetry 100 100 07/24/20 22:20 07/25/20 00:00 07/25/20 04:00 Temperature Pulse Rate 110 H 111 H 108 H Respiratory Rate Blood Pressure Pulse Oximetry 07/25/20 06:00 07/25/20 07:49 07/25/20 08:20 Temperature 97.5 F L Pulse Rate 110 H 106 H 108 H Respiratory Rate 18 Blood Pressure 143/90 H Pulse Oximetry 99 07/25/20 12:00 Temperature Pulse Rate 108 H Respiratory Rate Blood Pressure Pulse Oximetry Intake/Output Intake/Output: Intake & Output 07/22/20 07/23/20 07/24/20 07/25/20 23:59 23:59 23:59 23:59 Intake Total 2650 3980 4080 2130 Output Total 25 950 4200 2400 Balance 2625 3030 -120 -270 Meds/Results Radiology Results: ITS Impressions Abdom
== END 2020-07-25 14:45 | disposition home or self-care (01) ==
LOC: ANHED 18:23 → ANH2MED 20:45
PROVIDERS: Internal Medicine; Internal Medicine Gastroenterology; Physician Assistant; Admitting Provider Family Medicine; Emergency Provider Emergency Medicine; PCP Family Medicine; Visit Provider Family Medicine
PROC: 0DJ08ZZ Inspection of Upper Intestinal Tract, Via Natural or Artificial Opening Endoscopic (ICD-10-PCS; CPT 43235; principal; 2020-07-24 10:45)
DX: K22.10 Ulcer of esophagus without bleeding (principal); K29.70 Gastritis, unspecified, without bleeding; R11.2 Nausea with vomiting, unspecified; R65.10 Systemic inflammatory response syndrome (SIRS) of non-infectious origin without acute organ dysfunction; R13.10 Dysphagia, unspecified; R93.89 Abnormal findings on diagnostic imaging of other specified body structures; D72.829 Elevated white blood cell count, unspecified; E11.65 Type 2 diabetes mellitus with hyperglycemia; E87.6 Hypokalemia; E83.42 Hypomagnesemia; E83.39 Other disorders of phosphorus metabolism; E87.2 Acidosis; R19.7 Diarrhea, unspecified; E11.42 Type 2 diabetes mellitus with diabetic polyneuropathy; I25.10 Atherosclerotic heart disease of native coronary artery without angina pectoris; G47.33 Obstructive sleep apnea (adult) (pediatric); N93.9 Abnormal uterine and vaginal bleeding, unspecified; I10 Essential (primary) hypertension; E78.5 Hyperlipidemia, unspecified; F32.9 Major depressive disorder, single episode, unspecified; I25.2 Old myocardial infarction; I65.22 Occlusion and stenosis of left carotid artery; E11.51 Type 2 diabetes mellitus with diabetic peripheral angiopathy without gangrene; E11.3599 Type 2 diabetes mellitus with proliferative diabetic retinopathy without macular edema, unspecified eye; G25.81 Restless legs syndrome; Z91.19 Patient's noncompliance with other medical treatment and regimen; Z79.4 Long term (current) use of insulin; Z89.611 Acquired absence of right leg above knee; Z86.73 Personal history of transient ischemic attack (TIA), and cerebral infarction without residual deficits; Z95.5 Presence of coronary angioplasty implant and graft; Z87.891 Personal history of nicotine dependence; Z79.02 Long term (current) use of antithrombotics/antiplatelets; E66.01 Morbid (severe) obesity due to excess calories; Z68.41 Body mass index [BMI] 40.0-44.9, adult
CPT/HCPCS: 43239; 36415; 36600; 51701; 74177; 76705; 80048; 80053; 81001; 81025; 82010; 82375; 82805; 82948; 83050; 83605; 83735; 84100; 85014; 85018; 85025; 85027; 87040; 87081; 88305; 93005; 96361; 96365; 96366; 96367; 96368; 96375; 96376; 99285; A9270; C9113; G0378; J0131; J1815; J2543; J2550; J2704; J3475; J3480; J7030; J7120; Q9967

== ENCOUNTER 2020-08-22 07:37 | Outpatient (CLI) | payer MEDICARE, BC, SELFPAY ==
[2020-08-22 09:08] LABS: Basophils Absolute Auto 0.1 K/mm3 (0.0-0.1); Basophils Percent Auto 0.8 % (0.2-1.2); Eosinophils Absolute Auto 0.5 K/mm3 (0-0.3); Eosinophils Percent Auto 3.8 % (0-4.4); Hematocrit 38.1 % (37.0-47.0); Immature Granulocyte Absolute 0.07 K/mm3 (0.00-0.031); Immature Granulocyte Percent A 0.6 % (0-0.5); Lymphocytes Absolute Auto 3.25 K/mm3 (0.9-3.2); Lymphocytes Percent Auto 27.1 % (18.3-44.2); Mean Corpuscular HGB Conc 31.5 g/dl (32-36); Mean Corpuscular Hemoglobin 28.2 pg (26-34); Mean Corpuscular Volume 89.6 fl (80-100); Monocytes Absolute Auto 0.7 K/mm3 (0.1-0.6); Monocytes Percent Auto 6.1 % (2.6-8.5); Neutrophils Absolute Auto 7.4 K/mm3 (1.3-6.7); Neutrophils Percent Auto 61.6 % (45.5-73.1); Platelet Count Result 325 k/mm3 (150-375); Red Blood Count 4.25 M/mm3 (4.2-5.4); Red Cell Distribution Width 14.8 % (11.5-14.5)
[2020-08-22 09:26] LABS: Alanine Aminotransferase 15 U/L (4-35); Alkaline Phosphatase 107 U/L (38-126); Anion Gap 11 mmol/L (8-16); Aspartate Amino Transferase 20 U/L (14-36); Bilirubin,Total 0.3 mg/dL (0.2-1.3); Blood Urea Nitrogen 16 mg/dL (7-17); Calcium 9.3 mg/dL (8.4-10.2); Carbon Dioxide 29 mmol/L (22-30); Chloride 100 mmol/L (98-107); Cholesterol 201 mg/dL (0-200); Estimated Glomerular Filt Rate > 60; Glucose 94 mg/dL (65-105); HDL Direct 36 mg/dL; Potassium 3.8 mmol/L (3.4-5.0); Sodium 140 mmol/L (137-145); Triglycerides 304 mg/dL (<150)
[2020-08-22 09:37] LABS: LDL Cholesterol Direct 110 mg/dL
[2020-08-22 11:25] LABS: Vitamin D 25 Hydroxy < 12.8 ng/mL
== END 2020-08-22 07:38 | disposition home or self-care (01) ==
PROVIDERS: PCP Family Medicine; Visit Provider Nurse Practitioner Family
DX: K76.0 Fatty (change of) liver, not elsewhere classified (principal); R10.811 Right upper quadrant abdominal tenderness; E55.9 Vitamin D deficiency, unspecified; K29.70 Gastritis, unspecified, without bleeding; I10 Essential (primary) hypertension
CPT/HCPCS: 36415; 80053; 80061; 82306; 84443; 85025

== ENCOUNTER 2020-10-14 14:30 | Outpatient (RCR) | payer MEDICARE, BC, SELFPAY ==
--- NOTE | 2020-07-17 09:18 | PTOPEVAL ---
PHYSICAL THERAPY EVALUATION Thank you for referring Yara Castillo to [facility].? Vijaya was evaluated today with a dx of right AKA/prosthetic training. The patient is scheduled to be seen for therapy?2 x/week for 4 weeks. Please review, sign, date and return this plan of care PAMELA. I agree with and certify that the following plan of care is medically necessary. Referring Physician Date Attending Provider: Chris Coats MD *PT Outpatient Evaluation Start: 07/17/20 07:37 Freq: Status: Active Protocol: Document 07/17/20 07:37 MLV (Rec: 07/17/20 08:34 MLV [id number]) Assessment Status Evaluation Evaluation Information Problem Diagnosis right AKA Onset 03/2019 Cause circulatory deficits from DM Additional Evaluation Detail right BKA was done in November 2017 due to DM/osteomyelitis. The patient had the AKA due to more circulation complications. The patient received her prosthesis in July of 2019 and had begun training with the leg but couldn't continue due to left leg developing sores. The left leg is recovered and the MD ordered therapy to continue prosthetic training. Prior Level of Function Activity Level (Last 3 Months) Occupation retired Hand Dominance Right Activity of Daily Living Ability Independent Indoor/Home Mobility Independent Community Mobility Needs Some Help Stairs Ability Not-Applicable Functional Cognition (Planning, Shopping Needs Some Help , Taking Medications) Cooking No Cleaning No Laundry No Shopping Yes Driving No Home Setting Home Type House,Single Level Living Situation With Adult Child,With Spouse Support Available Local Family Support [employer] Responsibilities Comment family does housework and cooking but patient is able to do all of her own self care and mobility with the w/c. Mobility Assistive Devices (Used Last 3 Wheelchair, Manual Months) Orthotic/Prosthetic Devices Right Lower Extremity Prosthesis Pain Assessment Timing of Pain Assessment Timing of Pain Assessment Assessment Pain Scale Pain
--- NOTE | 2020-07-22 13:00 | PCPTNOTE ---
Patient called & cancelled scheduled appointment this date due to not feeling well.
--- NOTE | 2020-07-25 09:41 | PCPTNOTE ---
Patient called & cancelled scheduled appointment this date due to being in the hospital with gastro issues.
--- NOTE | 2020-08-12 15:52 | PTOPEVAL ---
PHYSICAL THERAPY RE-EVALUATION Thank you for referring Yara Castillo to [facility].? Kayden has been re-assessed for the dx of right AKA and will benefit from further skilled PT at this time. The patient is scheduled to be seen for therapy?2 x/week for 4 weeks. Please review, sign, date and return this plan of care PAMELA. I agree with and certify that the following plan of care is medically necessary. Referring Physician Date Attending Provider: Chris Coats MD *PT Outpatient Re-Evaluation Start: 07/17/20 07:37 Freq: Status: Active Protocol: Document 08/12/20 13:30 MLV (Rec: 08/12/20 14:30 MLV [id number]) Assessment Status Re-evaluation Evaluation Information Problem Diagnosis right AKA Onset 03/2019 Cause circulatory deficits from DM Additional Evaluation Detail Patient feels better about getting her prosthesis and sleeve on but is still difficult. Patient sleeve is harder than the prosthesis to elliot. The patient is eager to get walking better so she can walk at home. Patient feels she is improving since her setback that required her to be hospitalized a few weeks ago. Pain Assessment Timing of Pain Assessment Timing of Pain Assessment Assessment Pain Scale Pain Scale Used Numeric (1 - 10) Self Report Pain Assessment Head, Frontal Reported Pain Level 1 Pain Description Aching Left Leg(s) Reported Pain Level 2 Pain Description Aching Pain Score Pain Score 1,2: Self Report Interventions Used Interventions Used By Clinicians Education Pain Relief Interventions Used By Medication,Position Change Patient Lower Extremity Muscle Strength Testing General Lower Extremity Strength Reason Not Measured WFL/Left Gross Lower Extremity Strength patient fatigues with 15 reps 2 sets of mild resistance exercises left leg (improved). Palpation Assessment Palpation Palpation right LE status is good with no signs of skin breakdown at distal leg but has redness and chafing at groin area where prosthesis creates pressure. No open areas noted at groin and pt. is managing area o
--- NOTE | 2020-09-02 11:57 | PCPTNOTE ---
Patient called & cancelled scheduled appointment this date due to left heel oozing.
--- NOTE | 2020-09-09 08:56 | PCPTNOTE ---
Patient called & cancelled scheduled appointment this date. Pt is in the hospital.
--- NOTE | 2020-09-27 13:50 | PTOPEVAL ---
PHYSICAL THERAPY RE-EVALUATION Thank you for referring Yara Castillo to [facility].? Vijaya was re-assessed this date for the dx of right AKA with prosthetic training. The pt would benefit from further therapy- see details below. The patient is scheduled to be seen for therapy?2x/week for 4 weeks. Please review, sign, date and return this plan of care PAMELA. I agree with and certify that the following plan of care is medically necessary. Referring Physician Date Attending Provider: Chris Coats MD *PT Outpatient Re-Evaluation Start: 07/17/20 07:37 Freq: Status: Active Protocol: Document 09/27/20 12:38 MLV (Rec: 09/27/20 13:34 [facility] [id number]) Therapy Assessment Status Assessment Status Assessment Status Progress Evaluation Information Problem Diagnosis right AKA Onset 03/2019 Additional Evaluation Detail Pt was doing her therapy and working on walking with her prosthesis then had to stop due to a sore on her foot, then had an [place] recently. The sore on her foot is better. Pt saw material engineer and GP after discharge, and reports not been given any restrictions. Pt feels a little weak in her arms now and hasn't worn her leg but maybe 2x a week. Pt wears the liner. Pt is excited to get going again for therapy. Pt is up about 6 hrs at a time, then takes a 1hr nap, and gets up again for a while. Pt is up more in the chair since last discussion. Pain Assessment Timing of Pain Assessment Timing of Pain Assessment Assessment Pain Scale Pain Scale Used Numeric (1 - 10) Self Report Pain Assessment Right Groin Reported Pain Level 3 Pain Description Pressure Other Pain Description prosthetic pressure Head, Frontal Reported Pain Level 0 Left Leg(s) Reported Pain Level 0 Pain Score Pain Score 3,0,0: Self Report Interventions Used Interventions Used By Clinicians Education,Exercise,Position Change Pain Relief Interventions Used By Inactivity/Rest,Position Patient Change Lower Extremity Muscle Strength Testing General Lower Extremity Strength Reason Not Measured WFL/Left Gross Lower Extremity Strength patient fatigues with 15 reps 2
--- NOTE | 2020-10-16 08:18 | PCPTNOTE ---
This treatment is being continued on visit number [id number]. Please see documentation on both accounts to view progress. Completed interventions, outcomes, and problems have been marked as Inactive to facilitate the copying of the Care plan routine for recurring accounts.
== END 2020-10-15 10:20 | disposition home or self-care (01) ==
LOC: ANHPT 14:30
PROVIDERS: PCP Family Medicine; Visit Provider Specialist
DX: Z47.81 Encounter for orthopedic aftercare following surgical amputation (principal); Z89.611 Acquired absence of right leg above knee
CPT/HCPCS: 97110; 97116; 97163; 97530; 97761

== ENCOUNTER 2020-11-27 12:30 | Outpatient (RCR) | payer MEDICARE, BC, SELFPAY ==
--- NOTE | 2020-10-16 12:28 | PCPTNOTE ---
The treatment documented on this account is a continuation of the treatment documented on visit number [id number]. Please see documentation on both accounts to view progress. The Plan of Care has been transitioned and updated within the new V#. I have addressed and agree with the discipline specific Problems, Interventions, and Goals for the current certification period. Completed interventions, outcomes, and problems have been marked as Inactive to facilitate the copying of the Care plan routine for recurring accounts.
--- NOTE | 2020-10-25 13:43 | PTOPEVAL ---
PHYSICAL THERAPY RE-EVALUATION Thank you for referring Yara Castillo to [facility].? The patient was re-assessed and goals updated. The patient is scheduled to continue to be seen for therapy?2 x/week for 4 weeks. Please review, sign, date and return this plan of care PAMELA. I agree with and certify that the following plan of care is medically necessary. Referring Physician Date Attending Provider: Chris Coats MD *PT Outpatient Re-Evaluation Start: 10/16/20 08:21 Freq: Status: Active Protocol: Document 10/25/20 11:21 MLV (Rec: 10/25/20 12:08 MLV [id number]) Therapy Assessment Status Assessment Status Progress Evaluation Information Problem Diagnosis right AKA Onset 03/2019 Cause circulatory deficits from DM Additional Evaluation Detail Pt reports feeling more confident and stronger in her arms. The reports continued concern about safety with walking for home activities yet. The patient reports wearing prosthesis 6-7hours a day most of time and feels she can get it on and off well. Pt still has help from the daughter for the liner to get it started due to the weight/ flexibility of the liner being difficult to manage. Patient has no upcoming appts with MD or liability analyst. Pain Assessment Timing of Pain Assessment Timing of Pain Assessment Assessment Self Report Self Report Pain Level 0 Pain Score Pain Score 0: Self Report Lower Extremity Muscle Strength Testing General Lower Extremity Strength Gross Lower Extremity Strength tolerating 2 sets of 20 reps with red tband exercises with minimal fatigue of muscle ( improved) Palpation Assessment Palpation Palpation left heel tissue integrity is good with no noted redness or open areas. Right leg integrity excellent-no signs of irritation. Balance Assessment Time Up Go (TUG) Timed Up and Go Test (TUG) (Seconds) 37 Assistive Devices Walker, Wheeled Comments minimal assist and chair to follow. 5 Time Sit to Stand Time in Seconds 34 5 Time Sit to Stand Comments labored moveme
--- NOTE | 2020-10-29 09:21 | PCPTNOTE ---
Patient called and states they are not feeling well and cannot make it to appointment.
--- NOTE | 2020-11-08 10:34 | PCPTNOTE ---
Patient called & cancelled scheduled appointment this date due to not feeling well.
--- NOTE | 2020-11-27 14:05 | PTOPEVAL ---
PHYSICAL THERAPY DISCHARGE Thank you for referring Yara Castillo to [facility].? Yara has completed 26 visits for the dx of right AKA/prosthetic training. Goals are partially met and status peaked. DC PT. Please review, sign, date and return this plan of care PAMELA. I agree with and certify that the following plan of care is medically necessary. Referring Physician Date Attending Provider: Chris Coats MD *PT Outpatient Discharge Start: 10/16/20 08:21 Freq: Status: Active Protocol: Document 11/27/20 12:33 MLV (Rec: 11/27/20 12:40 [facility] [id number]) Therapy Assessment Status Assessment Status Assessment Status Discharge Evaluation Information Problem Additional Evaluation Detail Patient reports she has not walked at home with her yet, reports not having time yet. The patient is wearing her leg 6-7 hours a day. The patient is wearing her leg for her outings and can get in/out of car with minimal trouble. The patient only requires someone to hold the chair and door for transfers. The patient is also awaiting a call to go to cardiac rehab. Patient denies trouble with her HEP using the theraband and plans to continue exercises and walking with her at home. Pain Assessment Timing of Pain Assessment Timing of Pain Assessment Assessment Self Report Self Report Pain Level 0 Pain Score Pain Score 0: Self Report Lower Extremity Range of Motion General Lower Extremity Range of Motion Reason Not Measured WFL/Left Lower Extremity Muscle Strength Testing General Lower Extremity Strength Gross Lower Extremity Strength tolerating 2 sets of 20 reps with red and green tband exercises with minimal fatigue of muscle (improved) Palpation Assessment Palpation Palpation left foot/ankle w/o open wounds and left leg with good tissue status/no signs of breakdown. The patient continues to require assist partially for donning prosthesis and is able to remove I. The patient is non compliant with proper sock
== END 2020-11-28 17:09 | disposition home or self-care (01) ==
LOC: ANHPT 12:30
PROVIDERS: PCP Family Medicine; Visit Provider Specialist
DX: Z47.81 Encounter for orthopedic aftercare following surgical amputation (principal); Z89.611 Acquired absence of right leg above knee
CPT/HCPCS: 97110; 97116; 97530; 97761

== ENCOUNTER 2020-11-27 15:06 | Outpatient (CLI) | payer MEDICARE, BC, SELFPAY ==
[2020-11-27 16:57] LABS: Creatinine Urine 67.7 mg/dL
[2020-11-27 17:02] LABS: MALB Creatinine Ratio 303.2 mg/g (0-30); Microalbumin Urine Random 205.3 mg/L (0-16.7)
== END 2020-11-27 15:07 | disposition home or self-care (01) ==
PROVIDERS: PCP Family Medicine; Visit Provider Internal Medicine Endocrinology, Diabetes & Metabolism
DX: E11.65 Type 2 diabetes mellitus with hyperglycemia (principal); Z79.4 Long term (current) use of insulin
CPT/HCPCS: 82043

== ENCOUNTER 2021-03-17 02:09 | Day surgery (SDC) | payer MEDICARE, BC, SELFPAY ==
[2021-03-06 16:19] VITALS: BMI 43.4
--- NOTE | 2021-03-14 18:55 | WPDANESEPPF ---
Anes - Initial Pre Proc Eval Procedure: Operation Date: 03/17/21 09:45 Proposed Procedures p Esophagogastroduodenoscopy & Screening Colonoscopy - Gonzalez Rangel MD Date/Time: 03/14/21 18:55 Surgeon: Gonzalez Rangel MD Pre Op Diagnosis: esophagitis, neoplasm screening Patient Data Age: 55 Gender: F Height: 1.73 m Weight: 129.5 kg Allergies Allergy/AdvReac Type Severity Reaction Status Date / Time No Known Allergies Allergy Verified 03/17/21 08:43 Home Medications Medication Instructions Recorded Confirmed Type aripiprazole 5 mg tablet 10 mg PO DAILY 06/27/19 03/17/21 History aspirin 81 mg tablet,delayed 81 mg PO DAILY 06/27/19 03/17/21 History release bupropion HCl 75 mg tablet 75 mg PO BID tablet 06/27/19 03/17/21 History ropinirole 0.25 mg tablet 0.25 mg PO HS PRN tablet 06/27/19 03/17/21 History venlafaxine 75 mg capsule,extended 225 mg PO QAM cap 06/27/19 03/17/21 History release 24 hr lisinopril 2.5 mg tablet 2.5 mg PO DAILY 04/18/20 03/17/21 History clopidogrel 75 mg tablet 75 mg PO DAILY #90 tablet 05/02/20 03/17/21 Rx nystatin 100,000 unit/gram topical 1 applic TOPICAL BID PRN 09/05/20 03/17/21 History cream atorvastatin 40 mg tablet 80 mg PO QPM tablet 09/16/20 03/17/21 History nitroglycerin 0.4 mg sublingual 0.4 mg SUBLINGUAL Q5M PRN 09/16/20 03/17/21 History tablet blood-glucose sensor #9 ea 10/09/20 01/20/21 Rx blood-glucose transmitter #3 ea 10/09/20 01/20/21 Rx blood sugar diagnostic #100 ea 10/21/20 01/20/21 Rx blood-glucose meter #1 ea 10/21/20 01/20/21 Rx lancets #100 ea 10/21/20 01/20/21 Rx BD Insulin Syringe Ultra-Fine 1 mL #300 ea NS 11/27/20 01/20/21 Rx 31 gauge x 16 metoprolol tartrate 50 mg tablet 50 mg PO BID tablet 11/27/20 03/17/21 History pen needle, diabetic 31 gauge x #100 ea 11/27/20 03/17/21 Rx 08/13 fenofibrate nanocrystallized 48 mg PO DAILY 12/26/20 03/17/21 History pantoprazole 40 mg PO BID 12/26/20 03/17/21 History Ozempic 2.5 unit IM WEEKLY 03/06/21 03/17/21 History diphenoxylate-atropine [Lomotil] 1 tablet PO TID PRN 03/06/21 03/17/21 History insulin regular hum U-500 conc See Rx Instructions SUBCUT 03/10/21 03/17/21 Rx TIDWMEAL #36 ml sod picosulf-mag ox-citric ac ml PO 03/17/21 History [Clenpiq] Patient hx anesthesia problems: none Family hx anesthesia problems: none Results Review: All pre-operative results and documents have been reviewed as part of the pre-operative evaluation. [facility] Past Medical History Medical History Chronic foot ulcer Colon cancer screening Depression Depression Esophagitis, erosive (Unknown) Essential hypertension Foot ulcer Left foot ulcer September 2019 now healed, s/p debridement History of TIAs December 2019 Hyperlipidemia Left carotid artery stenosis on antiplatelet therapy Liver enlargement Melena Morbid obesity Neuropathy Non-STEMI (non-ST elevated myocardial infarction) March 2013 Nonalcoholic hepatosteatosis NSTEMI (non-ST elevated myocardial infarction) Obesity Obstructive sleep apnea Non adherent to CPAP therapy Peripheral artery disease Phantom limb (syndrome) Proliferative diabetic retinopathy Recurrent urinary tract infection Restless leg syndrome TIA (transient ischemic attack) Tobacco abuse Type 2 diabetes mellitus with hyperglycemia, with long-term current use of insulin Hemoglobin A1c 10.02 April 2020 Upper abdominal pain (~07/2020) Surgical History Surgical History History of cardiac cath stent mid LAD- 2012 History of section History of endoscopy History of right above knee amputation History of right below knee amputation February 2018 with poor wound healing resulting in subsequent right above the knee amputation March 2019 Infected sebaceous cyst Posterior right ear Family History Family History (Buzz
[2021-03-17 08:47] VITALS: BP 152/82; PULSE 95; RESP 18; TEMP 36.3; O2SAT 99
[2021-03-17] MEDS: LACTATED RINGERS 1,000 ML 150 ML IV CONT (09:07)
[2021-03-17 09:13] LABS: Glucose Point of Care 181 mg/dl (65-105)
--- NOTE | 2021-03-17 09:13 | PM.HPGS ---
History of Present Illness History of Present Illness Consent: Risks, benefits, and alternatives have been discussed and questions answered. Patient agrees to proceed with procedure. Chief complaint: esophagitis, neoplasm screening Narrative: Yara Castillo is a 55 year old female with previous hospitalization for n/v and found to have severe erosive esophagitis now better with pantoprazole daily. Never had colonoscopy Review of Systems Constitutional: Constitutional: Denies headache(s) and Denies weakness Eyes: Eyes: Denies blurry vision ENT: Reports Normal hearing present, Denies headache(s) and Denies neck pain Cardiovascular: Cardiovascular: Denies chest pain and Denies dyspnea Respiratory: Respiratory: Denies dyspnea Gastrointestinal: Gastrointestinal: Reports no additional gastrointestinal complaints Genitourinary: Genitourinary: Denies dysuria Musculoskeletal: Musculoskeletal: Denies neck pain Integumentary/Breasts: Skin/Breast: Denies dry skin Neurologic: Reports Normal hearing present, Denies headache(s) and Denies weakness Psychiatric: Psychiatric: Denies anxiety Endocrine: Endocrine: Denies change in body appearance Hematologic/Lymphatic: Hematologic/Lymphatic: Denies easy bleeding Allergic/Immunologic: Allergic/Immunologic: Denies urticaria PMFSH Past Medical History Medical History Chronic foot ulcer Colon cancer screening Depression Depression Esophagitis, erosive (Unknown) Essential hypertension Foot ulcer Left foot ulcer September 2019 now healed, s/p debridement History of TIAs December 2019 Hyperlipidemia Left carotid artery stenosis on antiplatelet therapy Liver enlargement Melena Morbid obesity Neuropathy Non-STEMI (non-ST elevated myocardial infarction) March 2013 Nonalcoholic hepatosteatosis NSTEMI (non-ST elevated myocardial infarction) Obesity Obstructive sleep apnea Non adherent to CPAP therapy Peripheral artery disease Phantom limb (syndrome) Proliferative diabetic retinopathy Recurrent urinary tract infection Restless leg syndrome TIA (transient ischemic attack) Tobacco abuse Type 2 diabetes mellitus with hyperglycemia, with long-term current use of insulin Hemoglobin A1c 10.02 April 2020 Upper abdominal pain (~07/2020) Surgical History Surgical History History of cardiac cath stent mid - 2012 History of section History of endoscopy History of right above knee amputation History of right below knee amputation February 2018 with poor wound healing resulting in subsequent right above the knee amputation March 2019 Infected sebaceous cyst Posterior right ear Family History Family History Father Esophageal cancer Mother Breast cancer Non-Hodgkin lymphoma Sibling No problems noted. Other Hypertension Malignant neoplasm of prostate Social History Social History Social History: The patient is . She is a former smoker she quit smoking in September of 2019 when she became concerned she may lose her left foot due to another diabetic foot infection complicated by peripheral vascular disease. She does not drink alcohol use illicit substances. Patient uses medical cannabis. 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 Meño Wilde Code status: Full code Smoking packs per day: 1 Smoking cigarettes per day: 20.0 Years smoked: 13 Smoking pack-years: 13.00 Smoking status: Current every day smoker Tobacco type: cigarettes Alcohol intake: never Substance use: current Substance use type: marijuana Other substance usage details: MEDICAL MARIJUANA Living arrangements: with family Gender identity (if verbalized by the patient): Female
[2021-03-17 09:45] VITALS: BP 117/66; PULSE 89; RESP 18; O2SAT 99
[2021-03-17 09:55] VITALS: BP 126/70; PULSE 90; RESP 21; O2SAT 99
[2021-03-17 10:01] LABS: Glucose Point of Care 190 mg/dl (65-105)
[2021-03-17 10:05] VITALS: BP 128/64; PULSE 90; RESP 16; O2SAT 100
== END 2021-03-17 10:28 | disposition home or self-care (01) ==
PROVIDERS: PCP Family Medicine; Visit Provider Internal Medicine Gastroenterology
PROC: 0DJ08ZZ Inspection of Upper Intestinal Tract, Via Natural or Artificial Opening Endoscopic (ICD-10-PCS; CPT 43235; principal; 2021-03-17 09:45)
DX: Z12.11 Encounter for screening for malignant neoplasm of colon (principal); K64.8 Other hemorrhoids; D12.4 Benign neoplasm of descending colon; D12.3 Benign neoplasm of transverse colon; K29.70 Gastritis, unspecified, without bleeding; Z87.19 Personal history of other diseases of the digestive system; F32.9 Major depressive disorder, single episode, unspecified; I10 Essential (primary) hypertension; Z86.73 Personal history of transient ischemic attack (TIA), and cerebral infarction without residual deficits; E78.5 Hyperlipidemia, unspecified; I65.22 Occlusion and stenosis of left carotid artery; I25.2 Old myocardial infarction; E11.9 Type 2 diabetes mellitus without complications; I73.9 Peripheral vascular disease, unspecified; G47.33 Obstructive sleep apnea (adult) (pediatric); E11.3599 Type 2 diabetes mellitus with proliferative diabetic retinopathy without macular edema, unspecified eye; G25.81 Restless legs syndrome; E11.65 Type 2 diabetes mellitus with hyperglycemia; I25.10 Atherosclerotic heart disease of native coronary artery without angina pectoris; E11.51 Type 2 diabetes mellitus with diabetic peripheral angiopathy without gangrene; F17.210 Nicotine dependence, cigarettes, uncomplicated; F12.90 Cannabis use, unspecified, uncomplicated; Z79.82 Long term (current) use of aspirin; Z79.4 Long term (current) use of insulin; E66.01 Morbid (severe) obesity due to excess calories; Z68.41 Body mass index [BMI] 40.0-44.9, adult
CPT/HCPCS: 45385; 43239; 82948; 88305; J2001; J2704; J7120

== ENCOUNTER 2021-05-08 10:58 | Outpatient (CLI) | payer MEDICARE, BC, SELFPAY ==
--- NOTE | ~2021-05-08 | XR_ITS ---
EXAMINATION: XR chest 2V DATE: 05/08/2021 11:09 INDICATION: Cough, unspecified TECHNIQUE: AP and lateral views of the chest are obtained. COMPARISON: None available FINDINGS: The lungs are free of acute opacities. There is no pleural effusion or pneumothorax. The he art size is normal for technique. There is moderate thoracic spondylosis. IMPRESSION: 1. No acute cardiopulmonary abnormality. Reviewed, dictated and finalized at location A. OL MOTHER
== END 2021-05-08 10:59 | disposition home or self-care (01) ==
PROVIDERS: PCP Family Medicine; Visit Provider Nurse Practitioner Family
DX: R05.9 Cough, unspecified (principal)
CPT/HCPCS: 71046

== ENCOUNTER 2021-11-04 08:55 | Outpatient (CLI) | payer MEDICARE, BC, SELFPAY ==
--- NOTE | ~2021-11-04 | NM_ITS ---
EXAM: NM gastric emptying study DATE: 11/04/2021 13:37 INDICATION: Eructation. TECHNIQUE: A gastric emptying study was performed using the methodology of Alis BABB, et al. J Nucl Med 2007; 48:568-572. The patient was given a meal consisting of 2 scrambled eggs labeled with 1.09 mCi Tc-99m sulfur colloid, 2 slices of toast, two packages of jam, and approximately 120 mL of water. Simultaneous anterior and posterior 1-min images of the abdomen were obtained with the patient supin e at multiple time points over a total period of 4 hours. The geometric mean of anterior and posterio r views was determined, and the percentage retention was calculated for each time point. COMPARISON: CT abdomen and pelvis 07/22/2020 FINDINGS: Gastric retention of the radiotracer-labeled meal was 53%, 23%, and 3% at the 1-hour, 2-ho ur, and 4-hour time points, respectively. With this technique, apparent rapid gastric emptying is sug gested by <30% gastric retention at 1 hour. Delayed gastric emptying is defined by gastric retention of >90% at 1 hour, >60% retention at 2 hours, or >10% retention at 4 hours. IMPRESSION: 1. Normal gastric emptying. Reviewed, dictated and finalized at location A. IMPRESSION: 1. Normal gastric emptying.
== END 2021-11-04 08:56 | disposition home or self-care (01) ==
PROVIDERS: PCP Family Medicine; Visit Provider Nurse Practitioner Family
DX: E11.65 Type 2 diabetes mellitus with hyperglycemia (principal); R14.2 Eructation; R11.2 Nausea with vomiting, unspecified; Z79.4 Long term (current) use of insulin
CPT/HCPCS: 78264; A9541

== ENCOUNTER 2022-02-25 13:37 | Outpatient (CLI) | payer MEDICARE, BC, SELFPAY ==
--- NOTE | ~2022-02-25 | US_ITS ---
EXAMINATION: US abdomen complete DATE: 02/25/2022 14:07 INDICATION: Abdominal pain TECHNIQUE: Multiple grayscale and Doppler ultrasound images of the abdomen were obtained. COMPARISON: 07/22/2020 FINDINGS: The pancreatic head and body are normal in appearance. The pancreatic tail is not visualized. Liver has normal contour, with a smooth surface. There is increased parenchymal echogenicity and coarsened echotexture consistent with diffuse hepatic steatosis. No liver lesion identified. No intrahepatic b iliary duct dilation suspected. Portal venous flow was seen in the hepatopetal, normal direction and has normal Doppler waveform. The gallbladder is normal in appearance. There is no cholelithiasis. Th e common bile duct measures 3-4 mm, which is normal. Sonographic Song sign was reported as negative by the marble machine tender. Splenomegaly measuring 15.8 cm in length. There is normal renal contour and echo genicity bilaterally. The right kidney measures 12.5 x 7.0 x 7.3 cm and the left 12.2 x 5.4 x 7.0 cm. There are no focal renal lesions identified. There is no hydronephrosis. Visualized cephalad to mi d abdominal aorta and inferior vena cava are normal. IMPRESSION: 1. Diffuse hepatic steatosis. 2. Splenomegaly. Reviewed, dictated and finalized at location A.
== END 2022-02-25 13:38 | disposition home or self-care (01) ==
PROVIDERS: PCP Family Medicine; Visit Provider Nurse Practitioner Family
DX: R10.9 Unspecified abdominal pain (principal); K76.0 Fatty (change of) liver, not elsewhere classified; R16.1 Splenomegaly, not elsewhere classified
CPT/HCPCS: 36415; 76700; 80053; 82150; 82728; 83540; 83550; 83690; 85025

== ENCOUNTER 2022-02-25 14:53 | Outpatient (CLI) | payer MEDICARE, BC, SELFPAY ==
[2022-02-25 15:55] LABS: Basophils Absolute Auto 0.1 K/mm3 (0.0-0.1); Basophils Percent Auto 0.6 % (0.2-1.2); Eosinophils Absolute Auto 0.2 K/mm3 (0-0.3); Eosinophils Percent Auto 2.1 % (0-4.4); Hematocrit 41.4 % (37.0-47.0); Hemoglobin 12.2 g/dL (12.0-15.0); Immature Granulocyte Absolute 0.05 K/mm3 (0.00-0.031); Immature Granulocyte Percent A 0.4 % (0-0.5); Lymphocytes Percent Auto 20.9 % (18.3-44.2); Mean Corpuscular HGB Conc 29.5 g/dl (32-36); Mean Corpuscular Hemoglobin 26.6 pg (26-34); Mean Corpuscular Volume 90.2 fl (80-100); Mean Platelet Volume 10.3 fl (7.4-10.4); Monocytes Absolute Auto 0.5 K/mm3 (0.1-0.6); Neutrophils Absolute Auto 8.3 K/mm3 (1.3-6.7); Platelet Count Result 348 k/mm3 (150-375); Red Blood Count 4.59 M/mm3 (4.2-5.4); Red Cell Distribution Width 18.3 % (11.5-14.5); White Blood Count 11.5 K/mm3 (4.5-10.0)
[2022-02-25 16:07] LABS: Hypochromasia 1+ (NORMAL); Ovalocytes 1+ (NORMAL); Platelet Estimate Adequate (Adequate); Schistocytes None Seen (NORMAL)
[2022-02-25 16:17] LABS: Iron 57 ug/dL (37-170)
[2022-02-25 16:19] LABS: Alanine Aminotransferase 22 U/L (6-35); Albumin Level 4.9 g/dL (3.5-5.1); Alkaline Phosphatase 133 U/L (38-126); Amylase 54 U/L (30-110); Anion Gap 21 mmol/L (8-16); Aspartate Amino Transferase 22 U/L (14-36); Bilirubin,Total 0.4 mg/dL (0.2-1.3); Blood Urea Nitrogen 15 mg/dL (7-17); Calcium 9.9 mg/dL (8.4-10.2); Carbon Dioxide 21 mmol/L (22-30); Chloride 102 mmol/L (98-107); Estimated Glomerular Filt Rate > 60; Glucose 50 mg/dL (65-110); Lipase 47 U/L (23-300); Potassium 3.7 mmol/L (3.4-5.0); Sodium 144 mmol/L (137-145)
[2022-02-25 16:30] LABS: Percent Iron Saturation 11 % (20-50)
== END 2022-02-25 14:54 | disposition home or self-care (01) ==
PROVIDERS: PCP Family Medicine; Visit Provider Nurse Practitioner Family
DX: R10.9 Unspecified abdominal pain (principal); E11.65 Type 2 diabetes mellitus with hyperglycemia; Z51.81 Encounter for therapeutic drug level monitoring; Z79.4 Long term (current) use of insulin; R19.8 Other specified symptoms and signs involving the digestive system and abdomen; R16.1 Splenomegaly, not elsewhere classified
CPT/HCPCS: 36415; 80053; 82150; 82728; 83540; 83550; 83690; 85025